=== PATIENT | male | born 1965 | race American Indian/Alaskan Native ===

== ENCOUNTER 2019-04-08 14:59 | Inpatient (IN) | payer OTHER ==
[2019-04-08] MEDS ORDERED: CARDIZEM ONE (15:18)
[2019-04-08] MEDS ORDERED: CARDIZEM IV ONE (15:18)
[2019-04-08] MEDS ORDERED: ASPIRIN PO ONE (15:36)
[2019-04-08] MEDS ORDERED: HEPARIN 10,000 UNITS/10 ML IV ONE (15:37)
[2019-04-08] MEDS: CARDIZEM/D5W 100MG/100ML 100 MG/100 ML BAG IV SCH ×2 (16:10→22:35)
--- NOTE | 2019-04-08 16:21 | XRay Report ---
CHEST 1 VIEW INDICATION: Chest Pain. COMPARISON: FINDINGS: SUPPORT DEVICES: None. HEART / MEDIASTINUM: No significant abnormality. LUNGS / PLEURA: No significant pulmonary or pleural abnormality. No pneumothorax. ADDITIONAL FINDINGS: IMPRESSION: 1. No acute findings. Signer Name: Zachary Montemayor MD Signed: 04/08/2019 4:17 PM Workstation Name: [id number]
[2019-04-08 16:23] LABS: Basophils # (Auto) 0.1 K/mm3 (0.0-0.1); Basophils % (Auto) 0.9 % (0.0-1.8); Eosinophils # (Auto) 0.2 K/mm3 (0.0-0.4); Eosinophils % (Auto) 1.5 % (0.0-4.3); Hematocrit 43.2 % (35.5-45.6); Hemoglobin 14.6 gm/dl (11.8-15.2); Lymphocytes # (Auto) 2.1 K/mm3 (1.2-5.4); Lymphocytes % (Auto) 19.8 % (13.4-35.0); Mean Corpuscular HGB Conc 34 % (32-34); Mean Corpuscular Volume 87 fl (84-94); Monocytes # (Auto) 0.7 K/mm3 (0.0-0.8); Monocytes % (Auto) 6.8 % (0.0-7.3); Platelet Count 254 K/mm3 (140-440); Red Blood Count 4.96 M/mm3 (3.65-5.03); Red Cell Distribution Width 13.7 % (13.2-15.2)
[2019-04-08] MEDS: HEPARIN/ 0.45% NACL-25,000 UNIT/500 ML 25,000 UNIT/500 ML BAG IV SCH (16:31)
[2019-04-08 16:34] LABS: INR 1.02 (0.87-1.13)
[2019-04-08 16:35] LABS: Partial Thromboplastin Time 32.6 Sec. (24.2-36.6)
--- NOTE | 2019-04-08 16:42 | Emergency Department Report ---
ED Chest Pain HPI - General Chief Complaint: Chest Pain Stated Complaint: CHEST PAIN Time Seen by Provider: 04/08/19 15:00 Source: patient Mode of arrival: Wheelchair Limitations: No Limitations - History of Present Illness Initial Comments: 54-year-old male with a past medical history of obesity, sleep apnea, and recently diagnosed hypertension presents to the hospital complaints of chest pain and diaphoresis. 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 Some fatigue also noted. Today prior to arrival patient had sudden onset of sharp substernal chest pain with some arm discomfort, worsening diaphoresis, and associated shortness of breath. Patient was noticed to be SVT in route with EMS. He arrives with the initial SVT rate of 239. Patient does have sensation of mild elevated heart rate without significant palpitations. He denies previous history of SVT or cardiac disease. He was recently started on a diuretic medication for his newly diagnosed hypertension but has not yet filled the medication. Patient denies calf Tenderness, leg edema, or recent travel. He reports that he had a stress test performed during a chest pain admission one year ago. PMD: Melendez - Related Data Allergies Allergy/AdvReac Type Severity Reaction Status Date / Time No Known Allergies Allergy Verified 04/08/19 15:33 Heart Score - HEART Score History: Slightly suspicious EKG: Non-specific Age: 45-65 Risk factors: 1-2 risk factors Troponin: < normal limit HEART Score: 3 ED Review of Systems ROS: Stated complaint: CHEST PAIN Other details as noted in HPI Comment: All other systems reviewed and negative ED Past Medical Hx - Past Medical History Hx Hypertension: Yes Additional medical history: sleep apnea - Social History Smoking Status: Former Smoker Substance Use Type: None ED Physical Exam - General Limitations: No Limitations - Other Other exam information: General: No limitations, patient is alert in no acute distress Head exam: Atraumatic, normocephalic Eyes exam: Normal appearance, pupils equal reactive to light, extraocular movements intact ENT: Moist mucous membrane, normal oropharynx Neck exam: Normal inspection, full range of motion, no meningismus nontender Respiratory exam: Clear to auscultation bilateral, no wheezes, rales, crackles Cardiovascular: Tachycardic regular rhythm Abdomen: Soft, nondistended, and nontender, with normal bowel sounds, no rebound, or guarding Extremity: Full range of motion normal inspection no deformity, no leg edema or calf tenderness Back: Normal Inspection, full range of motion, no tenderness Neurologic: Alert, oriented x3, cranial nerves intact, no motor or sensory deficit Psychiatric: normal affect, normal mood Skin: Diaphoresis ED Course Vital Signs 04/08/19 04/08/19 04/08/19 15:18 15:45 16:10 Temperature 98.4 F Pulse Rate 223 H 119 H 128 H Respiratory 13 Rate Blood Pressure 118/77 135/81 150/84 O2 Sat by Pulse 97 Oximetry - Reevaluation(s) Reevaluation #1: 04/08/19 15:00 at bedside at time of pt arrival. svt noted. 2 IV lines, classroom monitor, pulse ox, and defib paddles placed pt tx with adenosine 6mg, than 12 mg with with temporary slow down and rhythm which revealed flutter waves Cardizem 10 mg IV then given with heart rate reduction to 120. Pt reports improvement in chest pain and diaphoresis. Repeat EKG obtained at 15:23 after Cardizem 10 mg EKG reviewed by forklift truck mechanic Dr. Gomez (15:36) agrees his underlying rhythm is likely flutter. pt received the additional Cardizem 10 mg, heparin drip, and Cardizem drip ordered Reevaluation #2: 04/08/19 17:50 cardizem titrated up to 15 and pt still with heart rate in 120's - Consultations Consultation #1: 04/08/19 15:25 case d/w Dr Gomez card front office help, agree ekg rhythm aflutter, cardizem drip, heparin drip recommended Consultation #2: 04/08/19 17:51 case d/w Dr Rony Melendez. Pt will may be admitted here. CRYSTAL score - Crystal Score Age > 65: (0) No Aspirin use within the Past 7 Days: (0) No 3 or more CAD Risk Factors: (0) No 2 or more Angina events in past 24 hrs: (0) No Known CAD with more than 50% Stenosis: (0) No Elevated Cardiac Markers: (0) No ST Deviation Greater than 0.5mm: (0) No CRYSTAL Score: 0 ED Medical Decision Making - Lab Data Result diagrams: 04/08/19 16:09 04/08/19 16:09 Lab Results 07/04/08/19 04/08/19 Range/Units 16:09 16:09 16:09 WBC 10.7 (4.5-11.0) K/mm3 RBC 4.96 (3.65-5.03) M/mm3 Hgb 14.6 (11.8-15.2) gm/dl Hct 43.2 (35.5-45.6) % MCV 87 (84-94) fl MCH 29 (28-32) pg MCHC 34 (32-34) % RDW 13.7 (13.2-15.2) % Plt Count 254 (140-440) K/mm3 Lymph % (Auto) 19.8 (13.4-35.0) % [place] % (Auto) 6.8 (0.0-7.3) % Eos % (Auto) 1.5 (0.0-4.3) % Baso % (Auto) 0.9 (0.0-1.8) % Lymph # 2.1 (1.2-5.4) K/mm3 [place] # 0.7 (0.0-0.8) K/mm3 Eos # 0.2 (0.0-0.4) K/mm3 Baso # 0.1 (0.0-0.1) K/mm3 Seg Neutrophils % 71.0 H (40.0-70.0) % Seg Neutrophils # 7.6 (1.8-7.7) K/mm3 PT 13.1 (12.2-14.9) Sec. INR 1.02 (0.87-1.13) APTT 32.6 (24.2-36.6) Sec. Sodium 141 (137-145) mmol/L Potassium 4.0 (3.6-5.0) mmol/L Chloride 101.9 (98-107) mmol/L Carbon Dioxide 30 (22-30) mmol/L Anion Gap 16 mmol/L BUN 20 (9-20) mg/dL Creatinine 1.1 (0.8-1.5) mg/dL Estimated GFR > 60 ml/min BUN/Creatinine Ratio 18 % Glucose 133 H (75-100) mg/dL Calcium 8.8 (8.4-10.2) mg/dL Magnesium (1.7-2.3) mg/dL Total Bilirubin 0.20 (0.1-1.2) mg/dL AST 22 (5-40) units/L ALT 24 (7-56) units/L Alkaline Phosphatase 76 (35-129) units/L Troponin T < 0.010 (0.00-0.029) ng/mL Total Protein 7.6 (6.3-8.2) g/dL Albumin 3.8 L (3.9-5) g/dL Albumin/Globulin Ratio 1.0 % TSH (0.270-4.200) mlU/mL Free T4 (0.76-1.46) ng/dL Urine Opiates Screen Urine Methadone Screen Ur Barbiturates Screen Ur Phencyclidine Scrn Ur Amphetamines Screen U Benzodiazepines Scrn Urine Cocaine Screen U Marijuana (THC) Screen Drugs of Abuse Note 04/08/19 04/08/19 04/08/19 Range/Units 16:09 16:13 16:45 WBC (4.5-11.0) K/mm3 RBC (3.65-5.03) M/mm3 Hgb (11.8-15.2) gm/dl Hct (35.5-45.6) % MCV (84-94) fl MCH (28-32) pg MCHC (32-34) % RDW (13.2-15.2) % Plt Count (140-440) K/mm3 Lymph % (Auto) (13.4-35.0) % [place] % (Auto) (0.0-7.3) % Eos % (Auto) (0.0-4.3) % Baso % (Auto) (0.0-1.8) % Lymph # (1.2-5.4) K/mm3 [place] # (0.0-0.8) K/mm3 Eos # (0.0-0.4) K/mm3 Baso # (0.0-0.1) K/mm3 Seg Neutrophils % (40.0-70.0) % Seg Neutrophils # (1.8-7.7) K/mm3 PT (12.2-14.9) Sec. INR (0.87-1.13) APTT (24.2-36.6) Sec. Sodium (137-145) mmol/L Potassium (3.6-5.0) mmol/L Chloride (98-107) mmol/L Carbon Dioxide (22-30) mmol/L Anion Gap mmol/L BUN (9-20) mg/dL Creatinine (0.8-1.5) mg/dL Estimated GFR ml/min BUN/Creatinine Ratio % Glucose (75-100) mg/dL Calcium (8.4-10.2) mg/dL Magnesium 2.20 (1.7-2.3) mg/dL Total Bilirubin (0.1-1.2) mg/dL AST (5-40) units/L ALT (7-56) units/L Alkaline Phosphatase (35-129) units/L Troponin T (0.00-0.029) ng/mL Total Protein (6.3-8.2) g/dL Albumin (3.9-5) g/dL Albumin/Globulin Ratio % TSH 1.080 (0.270-4.200) mlU/mL Free T4 1.21 (0.76-1.46) ng/dL Urine Opiates Screen Presumptive negative Urine Methadone Screen Presumptive negative Ur Barbiturates Screen Presumptive negative Ur Phencyclidine Scrn Presumptive negative Ur Amphetamines Screen Presumptive negative U Benzodiazepines Scrn Presumptive negative Urine Cocaine Screen Presumptive negative U Marijuana (THC) Screen Presumptive negative Drugs of Abuse Note Disclamer - EKG Data -: EKG Interpreted by Me (svt rate 239) EKG shows normal: axis (qrs 78), QRS complexes (qrsd 94), ST-T waves (no stemi, anteroseptal infarct) Rate: tachycardia (239) - EKG Data 04/08/19 16:42 ekg after cardizem 10mg, aflutter rate 120, anteroseptal infarct, no stemi - Radiology Data Radiology results: report reviewed CHEST 1 VIEW INDICATION: Chest Pain. COMPARISON: FINDINGS: SUPPORT DEVICES: None. HEART / MEDIASTINUM: No significant abnormality. LUNGS / PLEURA: No significant pulmonary or pleural abnormality. No pneumothorax. ADDITIONAL FINDINGS: IMPRESSION: 1. No acute findings. - Medical Decision Making plan to admit pt to the hospital for tx of rapid aflutter, sx improved with cardizem but mild tachy persists case d/w with card heparin drip iv initial trop neg. - Differential Diagnosis svt, afib, aflutter, hyperthyroid, electrolyte abnl Critical Care Time: Yes Critical care time in (mins) excluding proc time.: 35 Critical care attestation.: If time is entered above; I have spent that time in minutes in the direct care of this critically ill patient, excluding procedure time. ED Disposition Clinical Impression: Atrial flutter with rapid ventricular response, Chest pain, Diaphoresis, Obesity, HTN (hypertension), Sleep apnea Disposition: OP ADMIT IP TO THIS HOSP Is pt being admited?: Yes Condition: Fair Time of Disposition: 17:56 (Dr Barnes/hosp)
[2019-04-08 16:52] LABS: Albumin 3.8 g/dL (3.9-5); BUN/Creatinine Ratio 18; Blood Urea Nitrogen 20 mg/dL (9-20); Calcium 8.8 mg/dL (8.4-10.2); Hemolysis Index 610
[2019-04-08 17:11] LABS: Alanine Aminotransferase 24 units/L (7-56)
[2019-04-08 17:19] LABS: Amphetamine Screen,Urine PRESUMPTIVE NEGATIVE; Benzodiazepines Screen,Urine PRESUMPTIVE NEGATIVE; Cannabinoid Screen,Urine PRESUMPTIVE NEGATIVE; Cocaine Screen,Urine PRESUMPTIVE NEGATIVE; Methadone Screen,Urine PRESUMPTIVE NEGATIVE; Opiate Screen,Urine PRESUMPTIVE NEGATIVE
[2019-04-08 17:46] LABS: Free T4 (Free Thyroxine) 1.21 ng/dL (0.76-1.46)
--- NOTE | 2019-04-08 18:33 | History and Physical Report ---
History of Present Illness Chief complaint: My chest was tight History of present illness: 54 YO Male with HTN, KALLI, Obesity Hypoventilation presents to ED for evaluation. Pt states that he has experienced pain in his chest over the past 2 days with acute worsening of symptoms over the past 4 hours. Pt states that his pain is 9/10, substernal, nonradiating, associated with diaphoresis, worsened with exertion, relieved somewhat with rest. Pt acknowledges decreased exercise tolerance, shortness of breath, dypsnea at rest, as well as chest palpitations. Pt reports assuming that his symptoms were due to acid reflux, and flatulence. Pt became concerned today with acute worsening of the aformentioned symptoms. Pt transported to [facility] via private vehicle. Pt seen and evaluated in ED and found to have NSTEMI, Atrial Flutter with RVR, Angina, as well as symptoms consistent with Diastolic CHF. Pt treated with initiation of Heparin drip and Cardizem drip with mild improvement in patient symptoms and heart rate. Cardiology consulted in ED. Pt admitted to ICU for titration of cardizem drip. Pt denies fever, chills, NVD, Trauma, BRBPR, Productive cough, skin rash, recent ill contacts, prolonged travel/immobility, unilateral leg swelling, calf pain, individual/family history of DVT/PE/Bleeding /Blood Clotting Disorders. No prior admission for review. No medication listed for reconciliation at time of admission. Past History Past Medical History: hypertension, other (KALLI, Obesity Hypoventilation.) Past Surgical History: No surgical history, Other (reviewed) Social history: single. denies: smoking, alcohol abuse, prescription drug abuse Family history: diabetes, hypertension Medications and Allergies Allergies Allergy/AdvReac Type Severity Reaction Status Date / Time No Known Allergies Allergy Verified 04/08/19 15:33 Active Meds: Active Medications Diltiazem HCl (Cardizem/D5w 100mg/100ml) 100 mg in 100 mls @ 5 mls/hr IV TITR MILTON; Protocol Last Admin: 04/08/19 16:10 Dose: 5 mg/hr, 5 mls/hr Documented by: Heparin Sodium/Sodium Chloride (Heparin/ 0.45% Nacl-25,000 Unit/500 Ml) 25,000 unit in 500 mls @ 30 mls/hr IV TITR MILTON; Protocol Last Admin: 04/08/19 16:31 Dose: 1,500 units/hr, 30 mls/hr Documented by: Review of Systems Constitutional: no weight loss, no weight gain, no fever, no chills Ears, nose, mouth and throat: no ear pain, no ear discharge, no tinnitis, no decreased hearing, no nose pain Cardiovascular: chest pain, palpitations, shortness of breath, dyspnea on exertion, decreased exercise tolerance, no orthopnea, no syncope, no paroxysmal nocturnal dyspnea Respiratory: no cough, no cough with sputum, no excessive sputum, no hemoptysis Gastrointestinal: no nausea, no vomiting, no diarrhea, no constipation Genitourinary Male: no hematuria, no flank pain, no discharge, no urinary frequency, no urinary hesitancy Rectal: no pain, no incontinence, no bleeding Musculoskeletal: no neck pain, no shooting arm pain, no arm numbness/tingling, no low back pain, no shooting leg pain, no leg numbness/tingling Integumentary: no rash, no pruritis, no redness, no sores, no wounds, no jaundice Neurological: no transient paralysis, no paralysis, no weakness, no parathesias, no tingling, no seizures, no syncope Psychiatric: no anxiety, no memory loss, no change in sleep habits, no sleep disturbances, no hypersomnia, no change in appetite, no suicidal ideation Endocrine: no cold intolerance, no heat intolerance, no polyphagia, no excessive thirst, no polyuria, no nocturia, no excessive sweating Hematologic/Lymphatic: no easy bruising, no easy bleeding, no lymphadenopathy, no lymphedema Allergic/Immunologic: no allergic rhinitis, no persistent infections, no anaphylaxis, no angioedema Exam - Constitutional Vitals: Temp Pulse Resp BP Pulse Ox 98.4 F 128 H 13 150/84 97 04/08/19 15:45 04/08/19 16:10 04/08/19 15:45 04/08/19 16:10 04/08/19 15:45 General appearance: Present: mild distress, obese - EENT Eyes: Present: PERRL ENT: hearing intact, clear oral mucosa - Neck Neck: Present: supple, normal ROM - Respiratory Respiratory effort: normal Respiratory: bilateral: CTA - Cardiovascular Rhythm: irregularly irregular Heart Sounds: Present: S1 & S2. Absent: rub, click - Extremities Extremities: pulses symmetrical, No edema Peripheral Pulses: within normal limits - Abdominal General gastrointestinal: Present: soft, non-tender, non-distended, normal bowel sounds Male genitourinary: Present: normal - Integumentary Integumentary: Present: clear, warm, dry - Musculoskeletal Musculoskeletal: gait normal, strength equal bilaterally - Psychiatric Psychiatric: appropriate mood/affect, intact judgment & insight - Neurologic Neurologic: CNII-XII intact, moves all extremities Results - Labs CBC & Chem 7: 04/08/19 16:09 04/08/19 16:09 Labs: Abnormal lab results 04/08/19 04/08/19 Range/Units 16:09 16:09 Seg Neutrophils % 71.0 H (40.0-70.0) % Glucose 133 H (75-100) mg/dL Albumin 3.8 L (3.9-5) g/dL Assessment and Plan - Patient Problems (1) NSTEMI (non-ST elevated myocardial infarction) Current Visit: Yes Status: Acute Plan to address problem: Admit to ICU, heparin drip, cardiology consulted in ED, Echo, supportive care. The high probability of a clinically significant, sudden or life threatening deterioration of the [endocrine, renal, cardiac] system(s) required my full and direct attention, intervention and personal management. The aggregate critical care time was [65] minutes. This time is in addition to time spent performing reported procedures but includes the following: [x] Data Review and interpretation [x] Patient assessment and monitoring of vital signs [x] Documentation [x] Medication orders and management (2) Obesity hypoventilation syndrome Current Visit: Yes Status: Acute Plan to address problem: supplemental oxygen, nebulizer therapy, NIPPV as clinically indicated, chest x ray (3) Angina at rest Current Visit: Yes Status: Acute Plan to address problem: Serial cardiac enxymes, ekg, telemetry, pain control, supportive care, treat NSTEMI. (4) Diastolic CHF Current Visit: Yes Status: Acute Qualifiers: Heart failure chronicity: acute Qualified Code(s): I50.31 - Acute diastolic (congestive) heart failure Plan to address problem: Echo, strict I/O, daily weight, monitor uop q shift, thyroid panel, magnesium level, chest x ray,BNP, echo. (5) Atrial flutter with rapid ventricular response Current Visit: Yes Status: Acute (6) HTN (hypertension) Current Visit: Yes Status: Acute (7) Sleep apnea Current Visit: Yes Status: Acute Qualifiers: Sleep apnea type: unspecified type Qualified Code(s): G47.30 - Sleep apnea, unspecified Plan to address problem: Supplemental oxygen, nebulizer therapy, NIPPV QHS, supportive care, outpatient sleep study (8) DVT prophylaxis Current Visit: Yes Status: Acute Plan to address problem: SCD to BLE while in bed, therapeutic heparin.
[2019-04-08] MEDS ORDERED: PROVENTIL IH PRN (19:03)
[2019-04-08] MEDS ORDERED: PERCOCET 5/325 PO PRN (19:03)
[2019-04-08] MEDS ORDERED: SODIUM CHLORIDE FLUSH SYRINGE 10 ML IV PRN (19:03)
[2019-04-09 03:48] LABS: Basophils # (Auto) 0.1 K/mm3 (0.0-0.1); Basophils % (Auto) 0.6 % (0.0-1.8); Eosinophils # (Auto) 0.1 K/mm3 (0.0-0.4); Eosinophils % (Auto) 1.4 % (0.0-4.3); Hematocrit 43.3 % (35.5-45.6); Hemoglobin 14.6 gm/dl (11.8-15.2); Lymphocytes # (Auto) 2.6 K/mm3 (1.2-5.4); Lymphocytes % (Auto) 24.6 % (13.4-35.0); Mean Corpuscular HGB Conc 34 % (32-34); Mean Corpuscular Volume 87 fl (84-94); Monocytes # (Auto) 0.7 K/mm3 (0.0-0.8); Monocytes % (Auto) 6.8 % (0.0-7.3); Platelet Count 247 K/mm3 (140-440); Red Blood Count 4.98 M/mm3 (3.65-5.03); Red Cell Distribution Width 14.3 % (13.2-15.2)
[2019-04-09 04:11] LABS: Alanine Aminotransferase 21 units/L (7-56); Albumin 3.7 g/dL (3.9-5); BUN/Creatinine Ratio 21; Blood Urea Nitrogen 15 mg/dL (9-20); Calcium 8.8 mg/dL (8.4-10.2); Hemolysis Index 10
[2019-04-09] MEDS: HEPARIN/ 0.45% NACL-25,000 UNIT/500 ML 25,000 UNIT/500 ML BAG IV SCH (09:23)
[2019-04-09] MEDS: CARDIZEM/D5W 100MG/100ML 100 MG/100 ML BAG IV SCH (09:30)
[2019-04-09] MEDS ORDERED: CORDARONE 150 MG in D5W 97 ML IV ONE (10:07)
--- NOTE | 2019-04-09 10:12 | Consultation ---
History of Present Illness Consult date: 04/09/19 Consult reason: chest pain, other (atrial flutter) History of present illness: 54 year old male with past medical history of hypertension and sleep apnea presenting with chest pain and atypical atrial flutter with RVR. HR ~130 on IV diltiazem this morning. No previous cardiac disease. Troponin 0.099. Past History Past Medical History: hypertension, other (KALLI, Obesity Hypoventilation.) Past Surgical History: No surgical history, Other (reviewed) Social history: single. denies: smoking, alcohol abuse, prescription drug abuse Family history: diabetes, hypertension Medications and Allergies Allergies Allergy/AdvReac Type Severity Reaction Status Date / Time No Known Allergies Allergy Verified 04/08/19 15:33 Active Meds: Active Medications Albuterol (Proventil) 2.5 mg IH Q3H PRN PRN Reason: Shortness Of Breath Heparin Sodium/Sodium Chloride (Heparin/ 0.45% Nacl-25,000 Unit/500 Ml) 25,000 unit in 500 mls @ 30 mls/hr IV TITR MILTON; Protocol Last Admin: 04/09/19 09:23 Dose: 1,500 units/hr, 30 mls/hr Documented by: Oxycodone/Acetaminophen (Percocet 5/325) 1 tab PO Q6H PRN PRN Reason: Pain, Moderate (4-6) Sodium Chloride (Sodium Chloride Flush Syringe 10 Ml) 10 ml IV BID MILTON Sodium Chloride (Sodium Chloride Flush Syringe 10 Ml) 10 ml IV PRN PRN PRN Reason: LINE FLUSH Review of Systems All systems: negative Physical Examination Vital Signs Pulse BP 223 H 118/77 04/08/19 15:18 04/08/19 15:18 General appearance: no acute distress Neck: Positive: neck supple Cardiac: Positive: Tachycardia Lungs: Positive: Decreased Breath Sounds Abdomen: Positive: Soft Results 04/09/19 03:23 04/09/19 03:23 Cardiac Enzymes 04/08/19 04/09/19 Range/Units 16:09 03:23 AST 22 19 (5-40) units/L Coagulation 04/08/19 Range/Units 16:09 PT 13.1 (12.2-14.9) Sec. INR 1.02 (0.87-1.13) APTT 32.6 (24.2-36.6) Sec. CBC 04/08/19 04/09/19 Range/Units 16:09 03:23 WBC 10.7 10.5 (4.5-11.0) K/mm3 RBC 4.96 4.98 (3.65-5.03) M/mm3 Hgb 14.6 14.6 (11.8-15.2) gm/dl Hct 43.2 43.3 (35.5-45.6) % Plt Count 254 247 (140-440) K/mm3 Lymph # 2.1 2.6 (1.2-5.4) K/mm3 [place] # 0.7 0.7 (0.0-0.8) K/mm3 Eos # 0.2 0.1 (0.0-0.4) K/mm3 Baso # 0.1 0.1 (0.0-0.1) K/mm3 Comprehensive Metabolic Panel 04/08/19 04/09/19 Range/Units 16:09 03:23 Sodium 141 138 (137-145) mmol/L Potassium 4.0 4.3 (3.6-5.0) mmol/L Chloride 101.9 99.4 (98-107) mmol/L Carbon Dioxide 30 28 (22-30) mmol/L BUN 20 15 (9-20) mg/dL Creatinine 1.1 0.7 L (0.8-1.5) mg/dL Glucose 133 H 114 H (75-100) mg/dL Calcium 8.8 8.8 (8.4-10.2) mg/dL AST 22 19 (5-40) units/L ALT 24 21 (7-56) units/L Alkaline Phosphatase 76 66 (35-129) units/L Total Protein 7.6 7.2 (6.3-8.2) g/dL Albumin 3.8 L 3.7 L (3.9-5) g/dL EKG interpretations - Telemetry EKG Rhythm: Atrial Flutter Assessment and Plan Atypical atrial flutter Normal TSH Negative UDS Chest pain Non-specific troponin Rule out type II DC secondary to demand ischemia Sleep apnea Obesity Systemic Hypertension Recommendations: Discontinue IV diltiazem Start IV amiodarone with bolus Start po metoprolol and aspirin Continue IV heparin JESSICA guided CV in am if HR remains uncontrolled
--- NOTE | 2019-04-09 10:26 | Progress Note ---
Assessment and Plan Assessment and plan: Atrial flutter. TSH normal. Urine drug screen negative. Cardizem discontinued and IV amiodarone started per cardiology. Continue metoprolol and IV heparin. JESSICA guided cardioversion in a.m. per cardiology. Chest pain. Continue aspirin and heparin. Elevated troponin. Ischemic evaluation per cardiology. OHS/KALLI. Continue O2. Patient will likely need sleep study as outpatient. Hypertension. Continue antihypertensive medications. History Interval history: No new issues overnight. Hospitalist Physical - Constitutional Vitals: Temp Pulse Resp BP Pulse Ox 97.7 F 115 H 16 141/102 98 04/09/19 07:56 04/09/19 09:00 04/09/19 09:00 04/09/19 09:00 04/09/19 09:07 General appearance: Present: no acute distress - EENT Eyes: Present: PERRL, EOM intact ENT: hearing intact, clear oral mucosa, dentition normal - Neck Neck: Present: supple, normal ROM - Respiratory Respiratory effort: normal Respiratory: bilateral: CTA - Cardiovascular Rhythm: regular Heart Sounds: Present: S1 & S2. Absent: gallop, rub - Extremities Extremities: no ischemia, No edema, Full ROM - Abdominal General gastrointestinal: soft, non-tender, non-distended, normal bowel sounds - Integumentary Integumentary: Present: clear, warm, dry - Neurologic Neurologic: CNII-XII intact, moves all extremities Results - Labs CBC & Chem 7: 04/09/19 03:23 04/09/19 03:23 Labs: Laboratory Last Values WBC 10.5 K/mm3 (4.5-11.0) 04/09/19 03:23 RBC 4.98 M/mm3 (3.65-5.03) 04/09/19 03:23 Hgb 14.6 gm/dl (11.8-15.2) 04/09/19 03:23 Hct 43.3 % (35.5-45.6) 04/09/19 03:23 MCV 87 fl (84-94) 04/09/19 03:23 MCH 29 pg (28-32) 04/09/19 03:23 MCHC 34 % (32-34) 04/09/19 03:23 RDW 14.3 % (13.2-15.2) 04/09/19 03:23 Plt Count 247 K/mm3 (140-440) 04/09/19 03:23 Lymph % (Auto) 24.6 % (13.4-35.0) 04/09/19 03:23 [place] % (Auto) 6.8 % (0.0-7.3) 04/09/19 03:23 Eos % (Auto) 1.4 % (0.0-4.3) 04/09/19 03:23 Baso % (Auto) 0.6 % (0.0-1.8) 04/09/19 03:23 Lymph # 2.6 K/mm3 (1.2-5.4) 04/09/19 03:23 [place] # 0.7 K/mm3 (0.0-0.8) 04/09/19 03:23 Eos # 0.1 K/mm3 (0.0-0.4) 04/09/19 03:23 Baso # 0.1 K/mm3 (0.0-0.1) 04/09/19 03:23 Seg Neutrophils % 66.6 % (40.0-70.0) 04/09/19 03:23 Seg Neutrophils # 7.0 K/mm3 (1.8-7.7) 04/09/19 03:23 PT 13.1 Sec. (12.2-14.9) 04/08/19 16:09 INR 1.02 (0.87-1.13) 04/08/19 16:09 APTT 32.6 Sec. (24.2-36.6) 04/08/19 16:09 Heparin Anti-Xa Level 0.30 U.I./ml (0.3-0.7) 04/09/19 03:23 Sodium 138 mmol/L (137-145) 04/09/19 03:23 Potassium 4.3 mmol/L (3.6-5.0) 04/09/19 03:23 Chloride 99.4 mmol/L (98-107) 04/09/19 03:23 Carbon Dioxide 28 mmol/L (22-30) 04/09/19 03:23 15 mmol/L 04/09/19 03:23 BUN 15 mg/dL (9-20) 04/09/19 03:23 0.7 mg/dL (0.8-1.5) L 04/09/19 03:23 Estimated GFR > 60 ml/min 04/09/19 03:23 21 % 04/09/19 03:23 Glucose 114 mg/dL (75-100) H 04/09/19 03:23 Calcium 8.8 mg/dL (8.4-10.2) 04/09/19 03:23 Magnesium 2.20 mg/dL (1.7-2.3) 04/08/19 16:13 0.30 mg/dL (0.1-1.2) 04/09/19 03:23 AST 19 units/L (5-40) 04/09/19 03:23 ALT 21 units/L (7-56) 04/09/19 03:23 66 units/L (35-129) 04/09/19 03:23 0.094 ng/mL (0.00-0.029) H 04/08/19 20:42 NT-Pro-B Natriuret Pep 92.38 pg/mL (0-900) 04/08/19 20:42 7.2 g/dL (6.3-8.2) 04/09/19 03:23 3.7 g/dL (3.9-5) L 04/09/19 03:23 1.1 % 04/09/19 03:23 TSH 1.080 mlU/mL (0.270-4.200) 04/08/19 16:09 Free T4 1.21 ng/dL (0.76-1.46) 04/08/19 16:09 Presumptive negative 04/08/19 16:45 Presumptive negative 04/08/19 16:45 Ur Barbiturates Screen Presumptive negative 04/08/19 16:45 Ur Phencyclidine Scrn Presumptive negative 04/08/19 16:45 Ur Amphetamines Screen Presumptive negative 04/08/19 16:45 U Benzodiazepines Scrn Presumptive negative 04/08/19 16:45 Presumptive negative 04/08/19 16:45 U Marijuana (THC) Screen Presumptive negative 04/08/19 16:45 Disclamer 04/08/19 16:45 Active Medications - Current Medications Current Medications: Generic Name Dose Route Start Last Admin Trade Name Freq PRN Reason Stop Dose Admin Albuterol 2.5 mg 04/08/19 19:03 Proventil IH Q3H PRN Shortness Of Breath Aspirin 81 mg 04/09/19 11:00 Halfprin Ec PO QDAY MILTON Heparin Sodium/Sodium Chloride 25,000 unit in 500 mls @ 30 mls/hr 04/08/19 16:00 04/09/19 09:23 Heparin/ 0.45% Nacl-25,000 Unit/500 Ml IV 1,500 units/hr TITR MILTON 30 mls/hr Administration Protocol 1,500 UNITS/HR Amiodarone HCl 900 mg/ 500 mls @ 33.333 mls/hr 04/09/19 11:00 Dextrose IV DIRECT MILTON Protocol 1 MG/MIN Metoprolol Tartrate 50 mg 04/09/19 22:00 Lopressor PO BID MILTON Oxycodone/Acetaminophen 1 tab 04/08/19 19:03 Percocet 5/325 PO Q6H PRN Pain, Moderate (4-6) Sodium Chloride 10 ml 04/08/19 22:00 Sodium Chloride Flush Syringe 10 Ml IV BID MILTON Sodium Chloride 10 ml 04/08/19 19:03 Sodium Chloride Flush Syringe 10 Ml IV PRN PRN LINE FLUSH Nutrition/Malnutrition Assess - Dietary Evaluation Nutrition/Malnutrition Findings: Nutrition Notes Start: 04/09/19 08:37 Freq: Status: Active Protocol: Document 04/09/19 08:37 LP (Rec: 04/09/19 08:38 LP [id number]) Nutrition Notes Need for Assessment generated from: MD Order Initial or Follow up Brief Note Current Diagnosis Hypertension Other Pertinent Diagnosis NSTEMI, Aflutter Current Diet Cardiac Subjective/Other Information Consult for diet education. Pt states eating well and denies needs for diet education. Left handout on HTN diet. Nutrition Intervention Revisit per MD consult or patient Sign Off request:
[2019-04-09] MEDS: SODIUM CHLORIDE FLUSH SYRINGE 10 ML IV SCH ×3 (10:58→21:20)
[2019-04-09] MEDS: HALFPRIN EC PO SCH (11:14)
[2019-04-09] MEDS: CORDARONE 900 MG in D5W 482 ML IV SCH (11:26)
--- NOTE | 2019-04-09 15:25 | Consultation ---
History of Present Illness Consult date: 04/09/19 Requesting physician: DAVINA PATEL Reason for consult: other (Atrial Fibrillation with RVR) History of present illness: PULMONARY/CCM CONSULT NOTE (Full dictation # [id number]) Please see dictated notes for full details Past History Past Medical History: hypertension, other (KALLI, Obesity Hypoventilation.) Past Surgical History: No surgical history, Other (reviewed) Social history: single. denies: smoking, alcohol abuse, prescription drug abuse Family history: diabetes, hypertension Medications and Allergies Allergies Allergy/AdvReac Type Severity Reaction Status Date / Time No Known Allergies Allergy Verified 04/08/19 15:33 Home Medications Medication Instructions Recorded Confirmed Last Taken Type Acetaminophen/Codeine [Tylenol 1 tab PO Q4H 04/09/19 04/09/19 Unknown History /Codeine # 3 tab] Amoxicillin [Trimox CAP] 500 cap PO TID 04/09/19 04/09/19 Unknown History Terazosin [Hytrin] 1 cap PO DAILY 04/09/19 04/09/19 Unknown History Active Meds: Active Medications Albuterol (Proventil) 2.5 mg IH Q3H PRN PRN Reason: Shortness Of Breath Aspirin (Halfprin Ec) 81 mg PO QDAY MILTON Last Admin: 04/09/19 11:14 Dose: 81 mg Documented by: Heparin Sodium/Sodium Chloride (Heparin/ 0.45% Nacl-25,000 Unit/500 Ml) 25,000 unit in 500 mls @ 30 mls/hr IV TITR MILTON; Protocol Last Titration: 04/09/19 11:24 Dose: 1,650 units/hr, 33 mls/hr Documented by: Amiodarone HCl 900 mg/ (Dextrose) 500 mls @ 33.333 mls/hr IV DIRECT MILTON; Protocol Last Admin: 04/09/19 11:26 Dose: 1 mg/min, 33.333 mls/hr Documented by: Metoprolol Tartrate (Lopressor) 50 mg PO BID MILTON Oxycodone/Acetaminophen (Percocet 5/325) 1 tab PO Q6H PRN PRN Reason: Pain, Moderate (4-6) Sodium Chloride (Sodium Chloride Flush Syringe 10 Ml) 10 ml IV BID MILTON Last Admin: 04/09/19 11:22 Dose: Not Given Documented by: Sodium Chloride (Sodium Chloride Flush Syringe 10 Ml) 10 ml IV PRN PRN PRN Reason: LINE FLUSH Physical Examination Vital signs: Vital Signs Pulse BP 223 H 118/77 04/08/19 15:18 04/08/19 15:18 Results - Laboratory Findings CBC and BMP: 04/10/19 04:25 04/10/19 04:25 PT/INR, D-dimer PT 13.1 Sec. (12.2-14.9) 04/08/19 16:09 INR 1.02 (0.87-1.13) 04/08/19 16:09 Abnormal lab findings: Abnormal Labs 04/08/19 04/08/19 04/08/19 16:09 16:09 18:01 Seg Neutrophils % 71.0 H Heparin Anti-Xa Level Creatinine Glucose 133 H Troponin T 0.099 H Albumin 3.8 L 04/08/19 04/09/19 04/09/19 20:42 03:23 10:26 Seg Neutrophils % Heparin Anti-Xa Level 0.21 L Creatinine 0.7 L Glucose 114 H Troponin T 0.094 H Albumin 3.7 L
[2019-04-09] MEDS: LOPRESSOR PO SCH (21:19)
[2019-04-10] MEDS: HEPARIN/ 0.45% NACL-25,000 UNIT/500 ML 25,000 UNIT/500 ML BAG IV SCH ×2 (02:52→18:33)
[2019-04-10 05:03] LABS: Basophils # (Auto) 0.1 K/mm3 (0.0-0.1); Basophils % (Auto) 0.6 % (0.0-1.8); Eosinophils # (Auto) 0.2 K/mm3 (0.0-0.4); Eosinophils % (Auto) 1.6 % (0.0-4.3); Hematocrit 44.6 % (35.5-45.6); Hemoglobin 15.1 gm/dl (11.8-15.2); Lymphocytes # (Auto) 2.7 K/mm3 (1.2-5.4); Mean Corpuscular HGB Conc 34 % (32-34); Mean Corpuscular Volume 86 fl (84-94); Monocytes # (Auto) 0.7 K/mm3 (0.0-0.8); Platelet Count 253 K/mm3 (140-440); Red Blood Count 5.16 M/mm3 (3.65-5.03); Red Cell Distribution Width 13.9 % (13.2-15.2)
[2019-04-10 05:23] LABS: BUN/Creatinine Ratio 16; Blood Urea Nitrogen 14 mg/dL (9-20); Calcium 8.8 mg/dL (8.4-10.2); Hemolysis Index 9
[2019-04-10] MEDS: TRIMOX PO SCH ×3 (08:09→20:09)
[2019-04-10] MEDS: CORDARONE 900 MG in D5W 482 ML IV SCH (09:49)
[2019-04-10] MEDS ORDERED: TERAZOSIN PO SCH (10:00)
--- NOTE | 2019-04-10 10:32 | Progress Note ---
Assessment and Plan Atypical atrial flutter Normal TSH Negative UDS Chest pain Non-specific troponin Sleep apnea Obesity Systemic Hypertension Recommendations: Continue IV heparin, amiodarone and beta blockers for atrial fibrillation. Patient was given medications by the nurse this morning. We will therefore defer JESSICA guided CV until tomorrow Subjective Date of service: 04/10/19 Interval history: Patient has no complaints. Atrial flutter, rate ranging 110-115 on ekg monitor tech. Objective Vital Signs Temp Pulse Pulse Resp BP Pulse Ox 04/10/19 09:51 105 H 15 126/92 99 04/10/19 09:41 109 H 16 126/92 96 04/10/19 09:31 107 H 15 126/92 96 04/10/19 09:21 123 H 24 118/95 96 04/10/19 09:11 106 H 14 118/95 96 04/10/19 09:01 109 H 11 L 118/95 94 04/10/19 08:51 105 H 15 144/107 96 04/10/19 08:45 96 04/10/19 08:41 105 H 11 L 144/107 94 04/10/19 08:31 108 H 27 H 144/107 96 04/10/19 08:21 113 H 17 144/107 99 04/10/19 08:11 105 H 16 128/87 98 04/10/19 08:01 101 H 21 128/87 97 04/10/19 08:00 97.9 F 107 H 18 98 04/10/19 07:51 103 H 18 144/107 96 04/10/19 07:41 101 H 17 144/107 97 04/10/19 07:31 103 H 12 144/107 96 04/10/19 07:21 100 H 18 146/96 97 04/10/19 07:11 103 H 11 L 135/102 97 04/10/19 07:01 105 H 12 135/102 93 04/10/19 06:51 108 H 14 146/96 97 04/10/19 06:41 119 H 23 146/96 97 04/10/19 06:30 104 H 19 146/96 93 04/10/19 06:21 103 H 14 122/91 97 04/10/19 06:11 104 H 12 144/101 94 04/10/19 06:01 107 H 20 144/101 92 04/10/19 05:51 104 H 15 122/91 90 04/10/19 05:45 17 98 04/10/19 05:41 107 H 18 122/91 92 04/10/19 05:31 104 H 20 119/81 86 04/10/19 05:21 99 H 15 119/81 91 04/10/19 05:16 105 H 16 120/73 95 04/10/19 05:11 104 H 15 119/81 96 04/10/19 05:01 101 H 15 120/73 93 04/10/19 04:51 100 H 14 119/81 96 04/10/19 04:41 104 H 13 119/81 97 04/10/19 04:31 106 H 14 129/80 94 04/10/19 04:21 105 H 18 129/80 97 04/10/19 04:11 102 H 12 129/80 98 04/10/19 04:05 105 H 17 98 04/10/19 04:01 123 H 16 129/80 96 04/10/19 04:00 98.8 F 04/10/19 03:51 97 H 18 129/80 99 04/10/19 03:41 84 13 129/80 97 04/10/19 03:31 98 H 13 127/87 96 04/10/19 03:21 94 H 13 136/79 97 04/10/19 03:11 92 H 14 136/79 96 04/10/19 03:09 105 H 17 98 04/10/19 03:01 92 H 12 129/80 95 04/10/19 02:51 95 H 19 136/79 98 04/10/19 02:41 91 H 13 136/79 96 04/10/19 02:31 89 13 136/79 97 04/10/19 02:21 91 H 17 144/72 94 04/10/19 02:11 94 H 13 144/72 96 04/10/19 02:01 94 H 16 143/86 95 04/10/19 01:51 96 H 18 144/72 98 04/10/19 01:45 94 H 105 H 17 98 04/10/19 01:41 94 H 14 144/72 98 04/10/19 01:31 93 H 15 144/72 97 04/10/19 01:21 93 H 20 137/91 99 04/10/19 01:11 90 14 137/91 98 04/10/19 01:00 89 14 138/82 95 04/10/19 00:51 95 H 12 137/91 97 04/10/19 00:41 94 H 15 137/91 99 04/10/19 00:31 95 H 17 128/81 98 04/10/19 00:21 90 25 H 128/81 98 04/10/19 00:11 88 29 H 128/81 98 04/10/19 00:05 93 H 14 131/74 98 04/10/19 00:01 92 H 29 H 131/74 96 04/10/19 00:00 99.0 F 04/09/19 23:51 95 H 24 128/81 98 04/09/19 23:41 97 H 32 H 128/81 97 04/09/19 23:31 92 H 38 H 128/81 94 04/09/19 23:21 95 H 18 144/97 97 04/09/19 23:11 93 H 30 H 144/97 98 04/09/19 23:01 98 H 14 144/97 97 04/09/19 22:51 95 H 12 142/97 97 04/09/19 22:41 98 H 12 142/97 98 04/09/19 22:30 103 H 13 142/97 96 04/09/19 22:21 92 H 17 131/110 99 04/09/19 22:11 103 H 15 131/110 98 04/09/19 22:09 113 H 04/09/19 22:03 104 H 18 131/110 98 04/09/19 22:00 113 H 113 H 20 131/110 96 04/09/19 21:51 120 H 13 154/112 98 04/09/19 21:45 120 H 14 154/112 97 04/09/19 21:41 121 H 22 154/112 95 04/09/19 21:31 122 H 18 154/112 92 04/09/19 21:21 122 H 18 136/105 97 04/09/19 21:19 112 H 136/105 04/09/19 21:11 113 H 17 136/105 99 04/09/19 21:00 115 H 19 136/105 90 04/09/19 20:51 121 H 17 139/95 94 04/09/19 20:41 121 H 16 139/95 96 04/09/19 20:31 117 H 17 139/95 91 04/09/19 20:21 112 H 14 118/94 88 04/09/19 20:11 107 H 16 118/94 93 04/09/19 20:01 107 H 19 140/100 90 04/09/19 20:00 98.8 F 04/09/19 19:51 109 H 17 140/100 94 04/09/19 19:41 112 H 16 140/100 94 04/09/19 19:31 114 H 19 140/100 93 04/09/19 19:21 111 H 18 144/81 95 04/09/19 19:11 112 H 15 144/81 95 04/09/19 19:01 108 H 14 144/81 92 04/09/19 19:00 112 H 105 H 14 93 04/09/19 18:51 112 H 22 136/89 92 04/09/19 18:41 110 H 21 127/98 98 04/09/19 18:30 113 H 17 127/98 93 04/09/19 18:21 114 H 15 126/104 96 04/09/19 18:11 109 H 13 150/93 96 04/09/19 18:01 113 H 13 150/93 94 04/09/19 17:51 109 H 14 139/91 96 04/09/19 17:41 118 H 22 126/92 92 04/09/19 17:31 116 H 18 126/92 92 04/09/19 17:21 108 H 19 132/88 92 04/09/19 17:11 107 H 18 128/95 91 04/09/19 17:00 113 H 15 128/95 92 04/09/19 16:51 123 H 28 H 136/119 96 04/09/19 16:40 108 H 20 125/77 95 04/09/19 16:31 108 H 17 135/81 93 04/09/19 16:21 107 H 16 127/85 94 04/09/19 16:11 112 H 18 135/90 95 04/09/19 16:01 105 H 14 135/90 93 04/09/19 16:00 97.8 F 105 H 14 93 04/09/19 15:51 110 H 15 125/77 96 04/09/19 15:41 115 H 16 125/77 97 04/09/19 15:31 126 H 23 125/77 96 04/09/19 15:21 121 H 15 125/77 92 04/09/19 15:11 125 H 28 H 142/104 95 04/09/19 15:01 101 H 18 142/104 91 04/09/19 14:50 104 H 20 137/85 95 04/09/19 14:41 109 H 16 137/85 94 04/09/19 14:31 109 H 28 H 133/101 93 04/09/19 14:21 109 H 38 H 133/101 93 04/09/19 14:11 106 H 33 H 93 04/09/19 14:00 104 H 28 H 152/118 93 04/09/19 13:50 109 H 20 152/118 95 04/09/19 13:40 109 H 12 128/80 95 04/09/19 13:30 105 H 18 137/83 98 04/09/19 13:20 110 H 18 137/83 97 04/09/19 13:10 119 H 21 140/77 96 04/09/19 13:00 106 H 18 136/83 97 04/09/19 12:50 113 H 14 136/83 94 04/09/19 12:40 109 H 17 140/77 95 04/09/19 12:30 111 H 17 129/92 98 04/09/19 12:20 126 H 22 129/92 94 04/09/19 12:10 124 H 20 143/95 96 04/09/19 12:00 97.8 F 113 H 113 H 26 H 138/96 91 04/09/19 11:50 106 H 18 138/96 95 04/09/19 11:40 108 H 18 131/76 97 04/09/19 11:30 102 H 16 130/83 96 04/09/19 11:20 103 H 18 130/83 97 04/09/19 11:10 112 H 15 139/90 95 04/09/19 11:00 103 H 15 131/97 94 04/09/19 10:50 118 H 22 131/97 93 04/09/19 10:40 112 H 14 139/90 94 - Physical Examination General: No Apparent Distress HEENT: Positive: PERRL Neck: Positive: neck supple Cardiac: Positive: irregularly irregular Lungs: Positive: Decreased Breath Sounds Neuro: Positive: Grossly Intact Abdomen: Positive: Soft - Labs and Meds CBC 04/10/19 Range/Units 04:25 WBC 10.1 (4.5-11.0) K/mm3 RBC 5.16 H (3.65-5.03) M/mm3 Hgb 15.1 (11.8-15.2) gm/dl Hct 44.6 (35.5-45.6) % Plt Count 253 (140-440) K/mm3 Lymph # 2.7 (1.2-5.4) K/mm3 [place] # 0.7 (0.0-0.8) K/mm3 Eos # 0.2 (0.0-0.4) K/mm3 Baso # 0.1 (0.0-0.1) K/mm3 Comprehensive Metabolic Panel 04/10/19 Range/Units 04:25 Sodium 138 (137-145) mmol/L Potassium 4.1 (3.6-5.0) mmol/L Chloride 100.5 (98-107) mmol/L Carbon Dioxide 28 (22-30) mmol/L BUN 14 (9-20) mg/dL Creatinine 0.9 (0.8-1.5) mg/dL Glucose 112 H (75-100) mg/dL Calcium 8.8 (8.4-10.2) mg/dL
[2019-04-10] MEDS: MINIPRESS PO SCH (10:43)
[2019-04-10] MEDS: LOPRESSOR PO SCH ×2 (10:43→22:06)
[2019-04-10] MEDS: HALFPRIN EC PO SCH (10:43)
[2019-04-10] MEDS: SODIUM CHLORIDE FLUSH SYRINGE 10 ML IV SCH ×2 (10:44→22:07)
--- NOTE | 2019-04-10 11:47 | Progress Note ---
Assessment and Plan Atrial fibrillation with a rapid ventricular response. Shortness of breath. Obstructive sleep apnea. Hypertension. Morbid obesity. Elevated serum troponin - continue Amiodarone drip and transition to oral dosing per cardiology - for JESSICA - continue full anticoagulation - continue NIV qhs re: KALLI - supplemental oxygen as needed to keep O2 sat's > 90% - weight loss couseled - NSTEMI per cardiology (likely demand ischemia) - continue other care per attending / other consultants ... re-evaluate in am & prn I have spent ( >35 ) minutes with the patient w/ >50% of the time spent counseling and/or coordinating care for this patient. Counseling topics and/or how time was spent coordinating patient's care is outlined in the impression and plan above. Subjective Date of service: 04/10/19 Principal diagnosis: A-fib with RVR; SOB; KALLI; HTN; Morbid obesity; NSTEMI Interval history: Patient is seen today for: Atrial fibrillation with a rapid ventricular response; Shortness of breath; Obstructive sleep apnea; Hypertension; Morbid obesity; Elevated serum troponin Seen and examined at bedside; 24hour events reviewed; nursing and respiratory care staff consulted; no adverse overnight events reported to me; resting peacefully in bed; denies acute chest pains or palpitations; overall feels better; No N/V/F/C; he remains on IV amiodarone and heparin; tolerated qhs BIPAP well Objective Vital Signs - 12hr 04/09/19 04/10/19 04/10/19 23:51 00:00 00:01 Temperature 99.0 F Pulse Rate 95 H 92 H Pulse Rate [ From Monitor] Respiratory 24 29 H Rate Blood Pressure 128/81 131/74 O2 Sat by Pulse 98 96 Oximetry 04/10/19 04/10/19 04/10/19 00:05 00:11 00:21 Temperature Pulse Rate 93 H 88 90 Pulse Rate [ From Monitor] Respiratory 14 29 H 25 H Rate Blood Pressure 131/74 128/81 128/81 O2 Sat by Pulse 98 98 98 Oximetry 04/10/19 04/10/19 04/10/19 00:31 00:41 00:51 Temperature Pulse Rate 95 H 94 H 95 H Pulse Rate [ From Monitor] Respiratory 17 15 12 Rate Blood Pressure 128/81 137/91 137/91 O2 Sat by Pulse 98 99 97 Oximetry 0704/10/19 04/10/19 01:00 01:11 01:21 Temperature Pulse Rate 89 90 93 H Pulse Rate [ From Monitor] Respiratory 14 14 20 Rate Blood Pressure 138/82 137/91 137/91 O2 Sat by Pulse 95 98 99 Oximetry 04/10/19 04/10/19 04/10/19 01:31 01:41 01:45 Temperature Pulse Rate 93 H 94 H 94 H Pulse Rate [ 105 H From Monitor] Respiratory 15 14 17 Rate Blood Pressure 144/72 144/72 O2 Sat by Pulse 97 98 98 Oximetry 04/10/19 04/10/19 04/10/19 01:51 02:01 02:11 Temperature Pulse Rate 96 H 94 H 94 H Pulse Rate [ From Monitor] Respiratory 18 16 13 Rate Blood Pressure 144/72 143/86 144/72 O2 Sat by Pulse 98 95 96 Oximetry 04/10/19 04/10/19 04/10/19 02:21 02:31 02:41 Temperature Pulse Rate 91 H 89 91 H Pulse Rate [ From Monitor] Respiratory 17 13 13 Rate Blood Pressure 144/72 136/79 136/79 O2 Sat by Pulse 94 97 96 Oximetry 04/10/19 04/10/19 04/10/19 02:51 03:01 03:09 Temperature Pulse Rate 95 H 92 H Pulse Rate [ 105 H From Monitor] Respiratory 19 12 17 Rate Blood Pressure 136/79 129/80 O2 Sat by Pulse 98 95 98 Oximetry 04/10/19 04/10/19 04/10/19 03:11 03:21 03:31 Temperature Pulse Rate 92 H 94 H 98 H Pulse Rate [ From Monitor] Respiratory 14 13 13 Rate Blood Pressure 136/79 136/79 127/87 O2 Sat by Pulse 96 97 96 Oximetry 04/10/19 04/10/19 04/10/19 03:41 03:51 04:00 Temperature 98.8 F Pulse Rate 84 97 H Pulse Rate [ From Monitor] Respiratory 13 18 Rate Blood Pressure 129/80 129/80 O2 Sat by Pulse 97 99 Oximetry 04/10/19 04/10/19 04/10/19 04:01 04:05 04:11 Temperature Pulse Rate 123 H 102 H Pulse Rate [ 105 H From Monitor] Respiratory 16 17 12 Rate Blood Pressure 129/80 129/80 O2 Sat by Pulse 96 98 98 Oximetry 04/10/19 04/10/1904/10/19 04:21 04:31 04:41 Temperature Pulse Rate 105 H 106 H 104 H Pulse Rate [ From Monitor] Respiratory 18 14 13 Rate Blood Pressure 129/80 129/80 119/81 O2 Sat by Pulse 97 94 97 Oximetry 04/10/19 04/10/19 04/10/19 04:51 05:01 05:11 Temperature Pulse Rate 100 H 101 H 104 H Pulse Rate [ From Monitor] Respiratory 14 15 15 Rate Blood Pressure 119/81 120/73 119/81 O2 Sat by Pulse 96 93 96 Oximetry 04/10/19 04/10/19 04/10/19 05:16 05:21 05:31 Temperature Pulse Rate 105 H 99 H 104 H Pulse Rate [ From Monitor] Respiratory 16 15 20 Rate Blood Pressure 120/73 119/81 119/81 O2 Sat by Pulse 95 91 86 Oximetry 04/10/19 04/10/19 04/10/19 05:41 05:45 05:51 Temperature Pulse Rate 107 H 104 H Pulse Rate [ From Monitor] Respiratory 18 17 15 Rate Blood Pressure 122/91 122/91 O2 Sat by Pulse 92 98 90 Oximetry 04/10/19 04/10/19 04/10/19 06:01 06:11 06:21 Temperature Pulse Rate 107 H 104 H 103 H Pulse Rate [ From Monitor] Respiratory 20 12 14 Rate Blood Pressure 144/101 144/101 122/91 O2 Sat by Pulse 92 94 97 Oximetry 04/10/19 04/10/19 04/10/19 06:30 06:41 06:51 Temperature Pulse Rate 104 H 119 H 108 H Pulse Rate [ From Monitor] Respiratory 19 23 14 Rate Blood Pressure 146/96 146/96 146/96 O2 Sat by Pulse 93 97 97 Oximetry 04/10/19 04/10/19 04/10/19 07:01 07:11 07:21 Temperature Pulse Rate 105 H 103 H 100 H Pulse Rate [ From Monitor] Respiratory 12 11 L 18 Rate Blood Pressure 135/102 135/102 146/96 O2 Sat by Pulse 93 97 97 Oximetry 04/10/19 04/10/19 04/10/19 07:31 07:41 07:51 Temperature Pulse Rate 103 H 101 H 103 H Pulse Rate [ From Monitor] Respiratory 12 17 18 Rate Blood Pressure 144/107 144/107 144/107 O2 Sat by Pulse 96 97 96 Oximetry 04/10/19 04/10/19 04/10/19 08:00 08:01 08:11 Temperature 97.9 F Pulse Rate 101 H 105 H Pulse Rate [ 107 H From Monitor] Respiratory 18 21 16 Rate Blood Pressure 128/87 128/87 O2 Sat by Pulse 98 97 98 Oximetry 04/10/19 04/10/19 04/10/19 08:21 08:31 08:41 Temperature Pulse Rate 113 H 108 H 105 H Pulse Rate [ From Monitor] Respiratory 17 27 H 11 L Rate Blood Pressure 144/107 144/107 144/107 O2 Sat by Pulse 99 96 94 Oximetry 04/10/19 04/10/19 04/10/19 08:45 08:51 09:01 Temperature Pulse Rate 105 H 109 H Pulse Rate [ From Monitor] Respiratory 15 11 L Rate Blood Pressure 144/107 118/95 O2 Sat by Pulse 96 96 94 Oximetry 04/10/19 04/10/19 04/10/19 09:11 09:21 09:31 Temperature Pulse Rate 106 H 123 H 107 H Pulse Rate [ From Monitor] Respiratory 14 24 15 Rate Blood Pressure 118/95 118/95 126/92 O2 Sat by Pulse 96 96 96 Oximetry 04/10/19 04/10/19 04/10/19 09:41 09:51 10:01 Temperature Pulse Rate 109 H 105 H 106 H Pulse Rate [ From Monitor] Respiratory 16 15 12 Rate Blood Pressure 126/92 126/92 118/91 O2 Sat by Pulse 96 99 93 Oximetry 04/10/19 04/10/19 04/10/19 10:11 10:21 10:31 Temperature Pulse Rate 109 H 113 H 107 H Pulse Rate [ From Monitor] Respiratory 20 12 15 Rate Blood Pressure 118/91 118/91 129/93 O2 Sat by Pulse 98 94 Oximetry 04/10/19 04/10/19 04/10/19 10:41 10:43 10:51 Temperature Pulse Rate 113 H 113 H 109 H Pulse Rate [ From Monitor] Respiratory 14 16 Rate Blood Pressure 129/93 129/93 118/91 O2 Sat by Pulse 95 94 Oximetry Constitutional: no acute distress, alert, other (middle aged morbidly obese AAM, normocephalic and atraumatic with mildly increased resp effort at rest) Eyes: non-icteric ENT: oropharynx moist, other (mallampati 4) Neck: supple, no lymphadenopathy, no JVD, other (large neck circumference) Effort: mildly labored Ascultation: Bilateral: clear Percussion: Bilateral: not dull Cardiovascular: irregular rhythm, other (No R/M) Gastrointestinal: normoactive bowel sounds, soft, non-tender, non-distended, other (No HSM) Integumentary: normal Extremities: no cyanosis, no edema, pulses normal, no ischemia or petechiae Neurologic: normal mental status, non-focal exam, pupils equal and round, motor strength normal and Psychiatric: mood appropriate, affect normal CBC and BMP: 04/12/19 05:06 04/10/19 04:25 ABG, PT/INR, D-dimer: PT/INR, D-dimer PT 13.1 Sec. (12.2-14.9) 04/08/19 16:09 INR 1.02 (0.87-1.13) 04/08/19 16:09 Abnormal lab findings: Abnormal Labs 04/08/19 04/08/19 04/08/19 16:09 16:09 18:01 RBC Seg Neutrophils % 71.0 H Heparin Anti-Xa Level Creatinine Glucose 133 H Troponin T 0.099 H Albumin 3.8 L 04/08/19 04/09/19 04/09/19 20:42 03:23 10:26 RBC Seg Neutrophils % Heparin Anti-Xa Level 0.21 L Creatinine 0.7 L Glucose 114 H Troponin T 0.094 H Albumin 3.7 L 04/10/19 04/10/19 04:25 04:25 RBC 5.16 H Seg Neutrophils % Heparin Anti-Xa Level Creatinine Glucose 112 H Troponin T Albumin Chest x-ray: image reviewed Allied health notes reviewed: nursing
--- NOTE | 2019-04-10 13:10 | Progress Note ---
Assessment and Plan - Patient Problems (1) Atrial flutter with rapid ventricular response Current Visit: Yes Status: Acute Plan to address problem: Cardiology note reviewed Continue IV heparin and IV amiodarone Patient is moderately tachycardiac Continue beta antonio Scheduled for JESSICA in a.m. Downgraded to IMCU per cardiology and pulmonary recommendations (2) Chest pain Current Visit: Yes Status: Acute Qualifiers: Ischemic chest pain type: unspecified angina pectoris type Plan to address problem: Cardiology following Note reviewed Borderline elevated troponin Atypical elevation per cardiology note Continue management per their recommendation (3) DVT prophylaxis Current Visit: Yes Status: Acute Plan to address problem: Continue IV heparin at this time (4) HTN (hypertension) Current Visit: Yes Status: Chronic Qualifiers: Hypertension type: essential hypertension Qualified Code(s): I10 - Essen tial (primary) hypertension Plan to address problem: Continue beta antonio (5) Obesity Current Visit: Yes Status: Chronic Qualifiers: Obesity type: due to excess calories Serious obesity comorbidity presence: with serious comorbidity Plan to address problem: Importance of weight loss and calorie restriction discussed with patient (6) Sleep apnea Current Visit: Yes Status: Chronic Qualifiers: Sleep apnea type: unspecified type Qualified Code(s): G47.30 - Sleep apnea, unspecified Plan to address problem: Pulmonary note reviewed Continue CPAP at at bedtime Subjective Date of service: 04/10/19 Interval history: Patient is alert and oriented and offers no specific complaints he denies any chest pain or shortness of breath or palpitations Cardiology and pulmonary notes reviewed Lab results reviewed 12 point review of systems is essentially negative at this time Objective - Constitutional Vitals: Vital Signs - 12hr 04/10/19 04/10/19 04/10/19 01:11 01:21 01:31 Temperature Pulse Rate 90 93 H 93 H Pulse Rate [ From Monitor] Respiratory 14 20 15 Rate Blood Pressure 137/91 137/91 144/72 O2 Sat by Pulse 98 99 97 Oximetry 04/10/19 04/10/19 04/10/19 01:41 01:45 01:51 Temperature Pulse Rate 94 H 94 H 96 H Pulse Rate [ 105 H From Monitor] Respiratory 14 17 18 Rate Blood Pressure 144/72 144/72 O2 Sat by Pulse 98 98 98 Oximetry 04/10/19 04/10/19 04/10/19 02:01 02:11 02:21 Temperature Pulse Rate 94 H 94 H 91 H Pulse Rate [ From Monitor] Respiratory 16 13 17 Rate Blood Pressure 143/86 144/72 144/72 O2 Sat by Pulse 95 96 94 Oximetry 04/10/19 04/10/19 04/10/19 02:31 02:41 02:51 Temperature Pulse Rate 89 91 H 95 H Pulse Rate [ From Monitor] Respiratory 13 13 19 Rate Blood Pressure 136/79 136/79 136/79 O2 Sat by Pulse 97 96 98 Oximetry 04/10/19 04/10/19 04/10/19 03:01 03:09 03:11 Temperature Pulse Rate 92 H 92 H Pulse Rate [ 105 H From Monitor] Respiratory 12 17 14 Rate Blood Pressure 129/80 136/79 O2 Sat by Pulse 95 98 96 Oximetry 04/10/19 04/10/19 04/10/19 03:21 03:31 03:41 Temperature Pulse Rate 94 H 98 H 84 Pulse Rate [ From Monitor] Respiratory 13 13 13 Rate Blood Pressure 136/79 127/87 129/80 O2 Sat by Pulse 97 96 97 Oximetry 04/10/19 04/10/19 04/10/19 03:51 04:00 04:01 Temperature 98.8 F Pulse Rate 97 H 123 H Pulse Rate [ From Monitor] Respiratory 18 16 Rate Blood Pressure 129/80 129/80 O2 Sat by Pulse 99 96 Oximetry 04/10/19 04/10/19 04/10/19 04:05 04:11 04:21 Temperature Pulse Rate 102 H 105 H Pulse Rate [ 105 H From Monitor] Respiratory 17 12 18 Rate Blood Pressure 129/80 129/80 O2 Sat by Pulse 98 98 97 Oximetry 04/10/19 04/10/19 04/10/19 04:31 04:41 04:51 Temperature Pulse Rate 106 H 104 H 100 H Pulse Rate [ From Monitor] Respiratory 14 13 14 Rate Blood Pressure 129/80 119/81 119/81 O2 Sat by Pulse 94 97 96 Oximetry 04/10/19 04/10/19 04/10/19 05:01 05:11 05:16 Temperature Pulse Rate 101 H 104 H 105 H Pulse Rate [ From Monitor] Respiratory 15 15 16 Rate Blood Pressure 120/73 119/81 120/73 O2 Sat by Pulse 93 96 95 Oximetry 04/10/19 04/10/19 04/10/19 05:21 05:31 05:41 Temperature Pulse Rate 99 H 104 H 107 H Pulse Rate [ From Monitor] Respiratory 15 20 18 Rate Blood Pressure 119/81 119/81 122/91 O2 Sat by Pulse 91 86 92 Oximetry 04/10/19 04/10/19 04/10/19 05:45 05:51 06:01 Temperature Pulse Rate 104 H 107 H Pulse Rate [ From Monitor] Respiratory 17 15 20 Rate Blood Pressure 122/91 144/101 O2 Sat by Pulse 98 90 92 Oximetry 04/10/19 04/10/19 04/10/19 06:11 06:21 06:30 Temperature Pulse Rate 104 H 103 H 104 H Pulse Rate [ From Monitor] Respiratory 12 14 19 Rate Blood Pressure 144/101 122/91 146/96 O2 Sat by Pulse 94 97 93 Oximetry 04/10/19 04/10/19 04/10/19 06:41 06:51 07:01 Temperature Pulse Rate 119 H 108 H 105 H Pulse Rate [ From Monitor] Respiratory 23 14 12 Rate Blood Pressure 146/96 146/96 135/102 O2 Sat by Pulse 97 97 93 Oximetry 04/10/19 04/10/19 04/10/19 07:11 07:21 07:31 Temperature Pulse Rate 103 H 100 H 103 H Pulse Rate [ From Monitor] Respiratory 11 L 18 12 Rate Blood Pressure 135/102 146/96 144/107 O2 Sat by Pulse 97 97 96 Oximetry 04/10/19 04/10/19 04/10/19 07:41 07:51 08:00 Temperature 97.9 F Pulse Rate 101 H 103 H Pulse Rate [ 107 H From Monitor] Respiratory 17 18 18 Rate Blood Pressure 144/107 144/107 O2 Sat by Pulse 97 96 98 Oximetry 04/10/19 04/10/19 04/10/19 08:01 08:11 08:21 Temperature Pulse Rate 101 H 105 H 113 H Pulse Rate [ From Monitor] Respiratory 21 16 17 Rate Blood Pressure 128/87 128/87 144/107 O2 Sat by Pulse 97 98 99 Oximetry 04/10/19 04/10/19 04/10/19 08:31 08:41 08:45 Temperature Pulse Rate 108 H 105 H Pulse Rate [ From Monitor] Respiratory 27 H 11 L Rate Blood Pressure 144/107 144/107 O2 Sat by Pulse 96 94 96 Oximetry 04/10/19 04/10/19 04/10/19 08:51 09:01 09:11 Temperature Pulse Rate 105 H 109 H 106 H Pulse Rate [ From Monitor] Respiratory 15 11 L 14 Rate Blood Pressure 144/107 118/95 118/95 O2 Sat by Pulse 96 94 96 Oximetry 04/10/19 04/10/19 04/10/19 09:21 09:31 09:41 Temperature Pulse Rate 123 H 107 H 109 H Pulse Rate [ From Monitor] Respiratory 24 15 16 Rate Blood Pressure 118/95 126/92 126/92 O2 Sat by Pulse 96 96 96 Oximetry 04/10/19 04/10/19 04/10/19 09:51 10:01 10:11 Temperature Pulse Rate 105 H 106 H 109 H Pulse Rate [ From Monitor] Respiratory 15 12 20 Rate Blood Pressure 126/92 118/91 118/91 O2 Sat by Pulse 99 93 98 Oximetry 04/10/19 04/10/19 04/10/19 10:21 10:31 10:41 Temperature Pulse Rate 113 H 107 H 113 H Pulse Rate [ From Monitor] Respiratory 12 15 14 Rate Blood Pressure 118/91 129/93 129/93 O2 Sat by Pulse 94 95 Oximetry 04/10/19 04/10/19 04/10/19 10:43 10:51 11:01 Temperature Pulse Rate 113 H 109 H 101 H Pulse Rate [ From Monitor] Respiratory 16 21 Rate Blood Pressure 129/93 118/91 135/85 O2 Sat by Pulse 94 91 Oximetry 04/10/19 04/10/19 04/10/19 11:11 11:21 11:31 Temperature Pulse Rate 109 H 109 H 107 H Pulse Rate [ From Monitor] Respiratory 21 21 15 Rate Blood Pressure 135/85 135/85 115/82 O2 Sat by Pulse 97 96 92 Oximetry 04/10/19 04/10/19 04/10/19 11:41 11:51 12:01 Temperature Pulse Rate 117 H 112 H 113 H Pulse Rate [ From Monitor] Respiratory 16 18 17 Rate Blood Pressure 115/82 115/82 115/89 O2 Sat by Pulse 94 92 92 Oximetry 04/10/19 12:11 Temperature Pulse Rate 117 H Pulse Rate [ From Monitor] Respiratory 17 Rate Blood Pressure 115/89 O2 Sat by Pulse 95 Oximetry General appearance: Present: no acute distress - EENT Eyes: PERRL, EOM intact ENT: hearing intact, clear oral mucosa - Neck Neck: supple, normal ROM, no masses or JVD - Respiratory Respiratory effort: normal Respiratory: bilateral: CTA - Cardiovascular Rhythm: irregularly irregular Heart Sounds: Present: S1 & S2 Extremities: No edema - Gastrointestinal General gastrointestinal: Present: soft, non-tender. Absent: hepatomegaly, splenomegaly Rectal Exam: deferred - Integumentary Integumentary: clear - Musculoskeletal Musculoskeletal: strength equal bilaterally - Neurologic Neurologic: no focal deficits, moves all extremities - Psychiatric Psychiatric: appropriate mood/affect - Labs CBC & Chem 7: 04/10/19 04:25 04/10/19 04:25 Labs: Abnormal lab results 04/10/19 04/10/19 Range/Units 04:25 04:25 RBC 5.16 H (3.65-5.03) M/mm3 Glucose 112 H (75-100) mg/dL
[2019-04-10] MEDS: PEPCID PO SCH (14:07)
[2019-04-10] MEDS: CORDARONE PO SCH (14:07)
--- NOTE | 2019-04-11 00:20 | Consultation ---
PULMONARY/CRITICAL CARE CONSULTATION CONSULTING PHYSICIAN: Donaldo Barnes MD REASON FOR CONSULTATION: Atrial fibrillation/flutter with rapid ventricular response. CHIEF COMPLAINT AND HISTORY OF PRESENT ILLNESS: As follows: The patient is a 54-year-old -[place] male with a past medical history of being obese as well as obstructive sleep apnea who was recently diagnosed with hypertension. He had presented to the hospital complaining of about an acute onset of shortness of breath, diaphoresis, chest pain that was on the left side of the chest. 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 However, on this day, he felt like there was something really going on. He came into the Emergency Room, and in the Emergency Room, he was noted actually en route to be in a supraventricular tachycardia of some sort with a rate of about 239. He denied any palpitations. He states he was recently started on a diuretic medication for his hypertension. Of note, he has not been compliant with his CPAP therapy for perhaps a few years. In the Emergency Room, he was evaluated and essentially found to be in atrial fibrillation with a rapid ventricular response. He was started on a Cardizem drip. The patient was also started on IV heparin therapy. ICU admission was requested. When I stopped by to see him, he was resting in bed, feeling better. Denies any nausea, vomiting, or overt aspiration. Denied any new onset leg pain or swelling either unilaterally or bilaterally or any suggestion of venous thromboembolic event. He denied any loss of consciousness. He denied any prior history of coronary artery disease. He stated this was a new onset diagnosis for him. This really is as much of the history of presentation as I have. PAST MEDICAL HISTORY: Hypertension, obstructive sleep apnea, possible obesity hypoventilation syndrome. PAST SURGICAL HISTORY: Denies. MEDICATIONS: He was on at the time I stopped by to see him were reviewed. Pertinent medications included the following: He was on albuterol 2.5 mg nebulized q. 3 hours p.r.n. shortness of breath, aspirin 81 mg p.o. daily, IV heparin drip was going at 1650 units per hour and adjusted per protocol. Amiodarone drip was going at 1 mg per minute, metoprolol 50 mg p.o. b.i.d., Percocet 5/325 one tablet p.o. q. 6 hours p.r.n. moderate pain. ALLERGIES: No known drug allergies. DIET: Morbidly obese. Actually states he has gained weight since he had a sleep study done. FAMILY AND SOCIAL HISTORY: Lives in the community. Denies alcohol, tobacco, or illicit drug use or abuse. There is a family history of diabetes and hypertension. REVIEW OF SYSTEMS: No overt loss of consciousness. No new onset seizures. No new onset focal weakness. Denies gross hematochezia or melena. Denies gross hematuria or dysuria. Denies hematemesis. Denies hemoptysis. Denies polydipsia or polyuria. He describes some sort of element of heat intolerance. Complete 13-system review of systems obtained. Pertinent positives and/or negatives as in body of history above, otherwise they were noncontributory. PHYSICAL EXAMINATION: VITAL SIGNS: At presentation in the Emergency Room, review of the vital signs show that he was afebrile, temperature 98.4 degrees Fahrenheit, pulse was 223, respiratory rate was 13, blood pressure 118/77, O2 sats were 97%, inspired oxygen concentration at that time was not recorded. When I stopped by to see him, his O2 sats were 94% that was on 2 liters nasal cannula. GENERAL: Middle-aged looking obese -[place] male. Normocephalic, atraumatic, talking to me with uninterrupted sentences without significant respiratory distress at rest. HEAD, EYES, EARS, NOSE AND THROAT: He is anicteric. No conjunctival erythema. Oropharynx is moist. Mallampati #4 oropharynx. No gross jugular venous distention, no thyromegaly. He does have a large neck circumference. Grossly, there were no palpable lymph nodes in the supraclavicular or submandibular lymph node chains. LUNGS: Auscultation of both lung jefferson were unremarkable. Lungs were clear bilaterally with good bilateral air movement. HEART: Heart sounds 1 and 2 were heard. Irregularly irregular rate and rhythm at the time of my evaluation without overt rubs or murmurs. ABDOMEN: Soft, full, protuberant. Bowel sounds are positive, nontender, no palpable hepatosplenomegaly. EXTREMITIES: Without overt digital clubbing, no cyanosis, no pedal edema. Pedal pulses were 2+ bilaterally. NEUROLOGIC: Pupils were equal, round, about 4 mm, reactive to light. Extraocular muscle movements were intact. He moved all 4 extremities spontaneously. SKIN: Normal turgor. No cellulitis, no rash. LABORATORY DATA: From my review is as follows: Admission white cell count 10,700, hemoglobin 14.6, hematocrit 43.2, platelet count 254. INR 1.02. Serum sodium 141, potassium 4.0, chloride 102, bicarbonate 30, BUN 20, creatinine 1.1, glucose 133. Liver function test within normal limits. Troponin was up at 0.099. Albumin slightly diminished at 3.8. TSH and free T4 within normal limits. Urine drug screen was negative. No microbiology studies. A chest x-ray was done. I have reviewed the chest x-ray as well as the radiologist's interpretation, borderline cardiomegaly if you ask me, it is an AP film, but even then suggestion of borderline to gross cardiomegaly, no focal infiltrate, perhaps mild interstitial edema, probably accentuation of markings from the soft tissue shadows though. No gross pneumothorax, no gross bony fracture that I can see. He had an EKG done at presentation. I have reviewed the EKG. Essentially, it showed atrial flutter, evidence of prior anteroseptal CT. No obvious ST elevations. ASSESSMENT: 1. Atrial fibrillation with a rapid ventricular response. 2. Shortness of breath. 3. Obstructive sleep apnea. 4. Hypertension. 5. Morbid obesity. 6. Elevated serum troponin. PLAN: He will continue on the amiodarone drip as well as the IV heparin therapy. He will also continue on metoprolol. Final rate control decisions in terms of oral amiodarone or just beta antonio therapy as well as further elements of the acute coronary syndrome workup will be deferred to the commercial development manager. I have taken the time to explain to him the link between untreated obstructive sleep apnea and the development of atrial fibrillation. I have urged him to as [facility] since he has put on a lot of weight according to him since his last sleep study, he probably needs a new sleep study at this time, but again that needs to be treated. In the meantime, he will be started on GI prophylaxis, especially with him being on full anticoagulation. He will likely need to be on long-term anticoagulation therapy also. He was taking some amoxicillin at admission for reported dental issue. Prior to coming in, he should complete that amoxicillin dose as prescribed. Flu and pneumonia vaccination will be addressed per protocol. He is critically ill on life-sustaining interventions including the Cardizem drip, amiodarone and IV heparin at high risk of decompensation including the risk of . At this time, I spent about 30-35 minutes of critical care time without overlap and excluding any procedural time that may be necessary. He will be observed in the intensive care unit. I believe while he is on the Cardizem drip and once we can get him off of the IV medications and if he remains stable, he will be transferred to the medical floor. Thank you very much for the consult, Dr. Barnes. We will follow along and make further recommendations as picture progresses/becomes clearer. JOB# [id number] JOHN/MIKHAIL LOBO
[2019-04-11] MEDS ORDERED: HURRICAINE ONE 20% TOPICAL SPRAY MM NR ×2 (10:00→11:00)
[2019-04-11] MEDS ORDERED: XYLOCAINE MPF 2% ONE (10:00)
[2019-04-11] MEDS: HEPARIN/ 0.45% NACL-25,000 UNIT/500 ML 25,000 UNIT/500 ML BAG IV SCH (10:02)
[2019-04-11] MEDS: SODIUM CHLORIDE FLUSH SYRINGE 10 ML IV SCH ×2 (10:02→21:33)
[2019-04-11] MEDS ORDERED: VERSED ONE (12:08)
[2019-04-11] MEDS ORDERED: DIPRIVAN 10 MG/ML IV ONE ×2 (12:08)
[2019-04-11] MEDS ORDERED: HURRICAINE ONE 20% TOPICAL SPRAY MM (12:13)
--- NOTE | 2019-04-11 12:19 | Progress Note ---
Assessment and Plan Assessment and plan: New onset atrial flutter with rapid rate -Normal TSH. Negative UDS -Continue IV heparin drip -Rate fairly controlled on oral amiodarone and Lopressor -Pt is scheduled for JESSICA today -Cardiology following Elevated troponin -Probably demand ischemia due to above -No further investigative testing per cardiology Obstructive sleep apnea -Continue CPAP at night -For outpatient follow-up sleep study since patient had not being using his CPAP at home and his home setting is unknown. Essential Hypertension -Controlled on meds Obesity with BMI of 38.5 -Lifestyle modification recommended Disposition: Discharge planning post JESSICA Time spent: 35 minutes History Interval history: Patient is seen today. He has no new complaints. He denied chest pain or shortness of breath. Hospitalist Physical - Constitutional Vitals: Temp Pulse Resp BP Pulse Ox 98.2 F 104 H 19 137/94 95 04/11/19 08:00 04/11/19 11:00 04/11/19 11:00 04/11/19 11:00 04/11/19 11:00 General appearance: Present: no acute distress - EENT Eyes: Present: PERRL, EOM intact ENT: hearing intact, clear oral mucosa - Neck Neck: Present: supple - Respiratory Respiratory effort: normal Respiratory: bilateral: CTA - Cardiovascular Rhythm: irregularly irregular Heart Sounds: Present: S1 & S2 - Extremities Extremities: No edema - Abdominal General gastrointestinal: soft, non-tender, normal bowel sounds - Integumentary Integumentary: Present: clear, warm, dry - Psychiatric Psychiatric: appropriate mood/affect - Neurologic Neurologic: CNII-XII intact Results - Labs CBC & Chem 7: 04/10/19 04:25 04/10/19 04:25 Labs: Laboratory Last Values WBC 10.1 K/mm3 (4.5-11.0) 04/10/19 04:25 RBC 5.16 M/mm3 (3.65-5.03) H 04/10/19 04:25 Hgb 15.1 gm/dl (11.8-15.2) 04/10/19 04:25 Hct 44.6 % (35.5-45.6) 04/10/19 04:25 MCV 86 fl (84-94) 04/10/19 04:25 MCH 29 pg (28-32) 04/10/19 04:25 MCHC 34 % (32-34) 04/10/19 04:25 RDW 13.9 % (13.2-15.2) 04/10/19 04:25 Plt Count 253 K/mm3 (140-440) 04/10/19 04:25 Lymph % (Auto) 27.0 % (13.4-35.0) 04/10/19 04:25 [place] % (Auto) 7.0 % (0.0-7.3) 04/10/19 04:25 Eos % (Auto) 1.6 % (0.0-4.3) 04/10/19 04:25 Baso % (Auto) 0.6 % (0.0-1.8) 04/10/19 04:25 Lymph # 2.7 K/mm3 (1.2-5.4) 04/10/19 04:25 [place] # 0.7 K/mm3 (0.0-0.8) 04/10/19 04:25 Eos # 0.2 K/mm3 (0.0-0.4) 04/10/19 04:25 Baso # 0.1 K/mm3 (0.0-0.1) 04/10/19 04:25 Seg Neutrophils % 63.8 % (40.0-70.0) 04/10/19 04:25 Seg Neutrophils # 6.4 K/mm3 (1.8-7.7) 04/10/19 04:25 PT 13.1 Sec. (12.2-14.9) 04/08/19 16:09 INR 1.02 (0.87-1.13) 04/08/19 16:09 APTT 32.6 Sec. (24.2-36.6) 04/08/19 16:09 Heparin Anti-Xa Level 0.32 U.I./ml (0.3-0.7) 04/10/19 17:41 Sodium 138 mmol/L (137-145) 04/10/19 04:25 Potassium 4.1 mmol/L (3.6-5.0) 04/10/19 04:25 Chloride 100.5 mmol/L (98-107) 04/10/19 04:25 Carbon Dioxide 28 mmol/L (22-30) 04/10/19 04:25 14 mmol/L 04/10/19 04:25 BUN 14 mg/dL (9-20) 04/10/19 04:25 0.9 mg/dL (0.8-1.5) 04/10/19 04:25 Estimated GFR > 60 ml/min 04/10/19 04:25 16 % 04/10/19 04:25 Glucose 112 mg/dL (75-100) H 04/10/19 04:25 Calcium 8.8 mg/dL (8.4-10.2) 04/10/19 04:25 Magnesium 2.20 mg/dL (1.7-2.3) 04/08/19 16:13 0.30 mg/dL (0.1-1.2) 04/09/19 03:23 AST 19 units/L (5-40) 04/09/19 03:23 ALT 21 units/L (7-56) 04/09/19 03:23 66 units/L (35-129) 04/09/19 03:23 0.094 ng/mL (0.00-0.029) H 04/08/19 20:42 NT-Pro-B Natriuret Pep 92.38 pg/mL (0-900) 04/08/19 20:42 7.2 g/dL (6.3-8.2) 04/09/19 03:23 3.7 g/dL (3.9-5) L 04/09/19 03:23 1.1 % 04/09/19 03:23 TSH 1.080 mlU/mL (0.270-4.200) 04/08/19 16:09 Free T4 1.21 ng/dL (0.76-1.46) 04/08/19 16:09 Presumptive negative 04/08/19 16:45 Presumptive negative 04/08/19 16:45 Ur Barbiturates Screen Presumptive negative 04/08/19 16:45 Ur Phencyclidine Scrn Presumptive negative 04/08/19 16:45 Ur Amphetamines Screen Presumptive negative 04/08/19 16:45 U Benzodiazepines Scrn Presumptive negative 04/08/19 16:45 Presumptive negative 04/08/19 16:45 U Marijuana (THC) Screen Presumptive negative 04/08/19 16:45 Disclamer 04/08/19 16:45 Active Medications - Current Medications Current Medications: Generic Name Dose Route Start Last Admin Trade Name Freq PRN Reason Stop Dose Admin Albuterol 2.5 mg 04/08/19 19:03 Proventil IH Q3H PRN Shortness Of Breath Amiodarone HCl 200 mg 04/10/19 14:00 04/10/19 14:07 Cordarone PO 200 mg QDAY MILTON Administration Aspirin 81 mg 04/09/19 11:00 04/10/19 10:43 Halfprin Ec PO 81 mg QDAY MILTON Administration Benzocaine 3 spray 04/11/19 11:00 Hurricaine One 20% Topical [place] MM 04/11/19 23:00 PREOP NR Famotidine 20 mg 04/10/19 13:00 04/10/19 14:07 Pepcid PO 20 mg DAILY MILTON Administration Heparin Sodium/Sodium Chloride 25,000 unit in 500 mls @ 30 mls/hr 04/08/19 16:00 04/11/19 10:02 Heparin/ 0.45% Nacl-25,000 Unit/500 Ml IV 1,650 units/hr TITR MILTON 33 mls/hr Administration Protocol 1,500 UNITS/HR Metoprolol Tartrate 50 mg 04/09/19 22:00 04/10/19 22:06 Lopressor PO 50 mg BID MILTON Administration Oxycodone/Acetaminophen 1 tab 04/08/19 19:03 Percocet 5/325 PO Q6H PRN Pain, Moderate (4-6) Prazosin HCl 1 mg 04/10/19 10:00 04/10/19 10:43 Minipress PO 1 mg DAILY MILTON Administration Sodium Chloride 10 ml 04/08/19 22:00 04/11/19 10:02 Sodium Chloride Flush Syringe 10 Ml IV 10 ml BID MILTON Administration Sodium Chloride 10 ml 04/08/19 19:03 Sodium Chloride Flush Syringe 10 Ml IV PRN PRN LINE FLUSH Nutrition/Malnutrition Assess - Dietary Evaluation Nutrition/Malnutrition Findings: Nutrition Notes Start: 04/09/19 08:37 Freq: Status: Active Protocol: Document 04/09/19 08:37 LP (Rec: 04/09/19 08:38 LP [id number]) Nutrition Notes Need for Assessment generated from: MD Order Initial or Follow up Brief Note Current Diagnosis Hypertension Other Pertinent Diagnosis NSTEMI, Aflutter Current Diet Cardiac Subjective/Other Information Consult for diet education. Pt states eating well and denies needs for diet education. Left handout on HTN diet. Nutrition Intervention Revisit per MD consult or patient Sign Off request:
[2019-04-11] MEDS ORDERED: NACL 0.9% 500 ML 500 ML ONE (12:22)
--- NOTE | 2019-04-11 12:31 | Anesthesia Day of Surgery ---
Anesthesia Day of Surgery - Day of Surgery Patient Examined: Yes Patient H&P Reviewed: Yes Patient is NPO: Yes
--- NOTE | 2019-04-11 12:32 | Anesthesia Consultation ---
Anesthesia Consult and Med Hx Date of service: 04/11/19 - Airway Anesthetic Teeth Evaluation: Good ROM Head & Neck: Adequate Mental/Hyoid Distance: Adequate Mallampati Class: Class III Intubation Access Assessment: Probably Good - Pulmonary Exam CTA: Yes - Cardiac Exam Cardiac Exam: RRR - Pre-Operative Health Status ASA Pre-Surgery Classification: ASA3 Proposed Anesthetic Plan: MAC - Pulmonary Hx Smoking: No Hx Asthma: No SOB: No COPD: No Hx Pneumonia: No Hx Sleep Apnea: Yes - Cardiovascular System Hx Hypertension: Yes Hx Cardia Arrhythmia: Yes (New onset afib ) - Central Nervous System Hx Psychiatric Problems: No - Other Systems Hx Cancer: No
--- NOTE | 2019-04-11 13:49 | Progress Note ---
Assessment and Plan Patient came back from cardioversion. Patient alert, awake. Denies chest pain, shortness of breath or cough.Patient is on 2 litres O2. O2 saturation 97%. Patients heart rate 80. B/P 138/94. - Patient Problems (1) Chest pain Current Visit: Yes Status: Acute Qualifiers: Ischemic chest pain type: unspecified angina pectoris type Plan to address problem: Management as per cardiology. (2) Diastolic CHF Current Visit: Yes Status: Acute Qualifiers: Heart failure chronicity: acute Qualified Code(s): I50.31 - Acute diastolic (congestive) heart failure Plan to address problem: Management as per cardiology. (3) NSTEMI (non-ST elevated myocardial infarction) Current Visit: Yes Status: Acute Plan to address problem: Management as per cardiology. (4) Atrial flutter with rapid ventricular response Current Visit: Yes Status: Acute Plan to address problem: Patient undergone cardioversion. Patient is on Heparin. Management as per cardiology. (5) HTN (hypertension) Current Visit: Yes Status: Chronic Qualifiers: Hypertension type: essential hypertension Qualified Code(s): I10 - Essential (primary) hypertension Plan to address problem: Management as per primary care. (6) Obesity hypoventilation syndrome Current Visit: Yes Status: Acute Plan to address problem: Patient is on BIPAP. Recommend to loose weight. (7) Sleep apnea Current Visit: Yes Status: Chronic Qualifiers: Sleep apnea type: unspecified type Qualified Code(s): G47.30 - Sleep apnea, unspecified Plan to address problem: Patient is on BIPAP. Recommend to loose weight. Subjective Date of service: 04/11/19 Interval history: Patient came back from cardioversion. Patient alert, awake. Denies chest pain, shortness of breath or cough.Patient is on 2 litres O2. O2 saturation 97%. Patients heart rate 80. B/P 138/94. Objective Vital Signs - 12hr 04/11/19 04/11/19 04/11/19 01:50 02:00 02:10 Temperature Temperature [ Post-Procedure] Pulse Rate 92 H 90 88 Pulse Rate [ From Monitor] Pulse Rate [ Intra-Procedure ] Pulse Rate [ Post-Procedure] Respiratory 18 15 18 Rate Respiratory Rate [Intra- Procedure] Respiratory Rate [Post- Procedure] Blood Pressure 169/130 130/80 130/80 Blood Pressure [Intra- Procedure] Blood Pressure [Post-Procedure ] O2 Sat by Pulse 97 97 97 Oximetry O2 Sat by Pulse Oximetry [ Intra-Procedure ] O2 Sat by Pulse Oximetry [Post -Procedure] 04/11/19 04/11/19 04/11/19 02:20 02:30 02:40 Temperature Temperature [ Post-Procedure] Pulse Rate 92 H 99 H 93 H Pulse Rate [ From Monitor] Pulse Rate [ Intra-Procedure ] Pulse Rate [ Post-Procedure] Respiratory 13 14 17 Rate Respiratory Rate [Intra- Procedure] Respiratory Rate [Post- Procedure] Blood Pressure 130/80 130/80 130/80 Blood Pressure [Intra- Procedure] Blood Pressure [Post-Procedure ] O2 Sat by Pulse 100 97 96 Oximetry O2 Sat by Pulse Oximetry [ Intra-Procedure ] O2 Sat by Pulse Oximetry [Post -Procedure] 04/11/19 04/11/19 04/11/19 02:43 02:50 03:00 Temperature 98.6 F Temperature [ Post-Procedure] Pulse Rate 93 H 93 H Pulse Rate [ From Monitor] Pulse Rate [ Intra-Procedure ] Pulse Rate [ Post-Procedure] Respiratory 16 15 Rate Respiratory Rate [Intra- Procedure] Respiratory Rate [Post- Procedure] Blood Pressure 130/80 130/80 Blood Pressure [Intra- Procedure] Blood Pressure [Post-Procedure ] O2 Sat by Pulse 97 97 Oximetry O2 Sat by Pulse Oximetry [ Intra-Procedure ] O2 Sat by Pulse Oximetry [Post -Procedure] 04/11/19 04/11/19 04/11/19 03:10 03:20 03:30 Temperature Temperature [ Post-Procedure] Pulse Rate 93 H 93 H 93 H Pulse Rate [ From Monitor] Pulse Rate [ Intra-Procedure ] Pulse Rate [ Post-Procedure] Respiratory 15 15 14 Rate Respiratory Rate [Intra- Procedure] Respiratory Rate [Post- Procedure] Blood Pressure 116/76 116/76 130/80 Blood Pressure [Intra- Procedure] Blood Pressure [Post-Procedure ] O2 Sat by Pulse 99 98 97 Oximetry O2 Sat by Pulse Oximetry [ Intra-Procedure ] O2 Sat by Pulse Oximetry [Post -Procedure] 04/11/19 04/11/19 04/11/19 03:40 03:50 04:00 Temperature Temperature [ Post-Procedure] Pulse Rate 95 H 92 H 102 H Pulse Rate [ 103 H From Monitor] Pulse Rate [ Intra-Procedure ] Pulse Rate [ Post-Procedure] Respiratory 15 11 L 15 Rate Respiratory Rate [Intra- Procedure] Respiratory Rate [Post- Procedure] Blood Pressure 130/80 130/80 114/91 Blood Pressure [Intra- Procedure] Blood Pressure [Post-Procedure ] O2 Sat by Pulse 98 96 99 Oximetry O2 Sat by Pulse Oximetry [ Intra-Procedure ] O2 Sat by Pulse Oximetry [Post -Procedure] 04/11/19 04/11/19 04/11/19 04:10 04:20 04:30 Temperature Temperature [ Post-Procedure] Pulse Rate 92 H 92 H 103 H Pulse Rate [ From Monitor] Pulse Rate [ Intra-Procedure ] Pulse Rate [ Post-Procedure] Respiratory 16 14 15 Rate Respiratory Rate [Intra- Procedure] Respiratory Rate [Post- Procedure] Blood Pressure 114/91 114/91 116/76 Blood Pressure [Intra- Procedure] Blood Pressure [Post-Procedure ] O2 Sat by Pulse 99 99 97 Oximetry O2 Sat by Pulse Oximetry [ Intra-Procedure ] O2 Sat by Pulse Oximetry [Post -Procedure] 04/11/19 04/11/19 04/11/19 04:40 04:50 05:00 Temperature Temperature [ Post-Procedure] Pulse Rate 97 H 93 H 92 H Pulse Rate [ From Monitor] Pulse Rate [ Intra-Procedure ] Pulse Rate [ Post-Procedure] Respiratory 14 13 15 Rate Respiratory Rate [Intra- Procedure] Respiratory Rate [Post- Procedure] Blood Pressure 116/76 116/76 116/76 Blood Pressure [Intra- Procedure] Blood Pressure [Post-Procedure ] O2 Sat by Pulse 99 98 99 Oximetry O2 Sat by Pulse Oximetry [ Intra-Procedure ] O2 Sat by Pulse Oximetry [Post -Procedure] 04/11/19 04/11/19 04/11/19 05:10 05:20 05:30 Temperature Temperature [ Post-Procedure] Pulse Rate 92 H 93 H 92 H Pulse Rate [ From Monitor] Pulse Rate [ Intra-Procedure ] Pulse Rate [ Post-Procedure] Respiratory 14 13 15 Rate Respiratory Rate [Intra- Procedure] Respiratory Rate [Post- Procedure] Blood Pressure 124/77 124/77 124/77 Blood Pressure [Intra- Procedure] Blood Pressure [Post-Procedure ] O2 Sat by Pulse 98 95 100 Oximetry O2 Sat by Pulse Oximetry [ Intra-Procedure ] O2 Sat by Pulse Oximetry [Post -Procedure] 04/11/19 04/11/19 04/11/19 05:40 05:50 06:00 Temperature Temperature [ Post-Procedure] Pulse Rate 103 H 113 H 100 H Pulse Rate [ From Monitor] Pulse Rate [ Intra-Procedure ] Pulse Rate [ Post-Procedure] Respiratory 18 14 14 Rate Respiratory Rate [Intra- Procedure] Respiratory Rate [Post- Procedure] Blood Pressure 124/77 124/77 123/86 Blood Pressure [Intra- Procedure] Blood Pressure [Post-Procedure ] O2 Sat by Pulse 99 99 97 Oximetry O2 Sat by Pulse Oximetry [ Intra-Procedure ] O2 Sat by Pulse Oximetry [Post -Procedure] 04/11/19 04/11/19 04/11/19 06:10 06:20 06:30 Temperature Temperature [ Post-Procedure] Pulse Rate 100 H 92 H 92 H Pulse Rate [ From Monitor] Pulse Rate [ Intra-Procedure ] Pulse Rate [ Post-Procedure] Respiratory 16 19 12 Rate Respiratory Rate [Intra- Procedure] Respiratory Rate [Post- Procedure] Blood Pressure 123/86 123/86 124/77 Blood Pressure [Intra- Procedure] Blood Pressure [Post-Procedure ] O2 Sat by Pulse 98 98 99 Oximetry O2 Sat by Pulse Oximetry [ Intra-Procedure ] O2 Sat by Pulse Oximetry [Post -Procedure] 04/11/19 04/11/19 04/11/19 06:40 06:50 07:00 Temperature Temperature [ Post-Procedure] Pulse Rate 93 H 100 H 97 H Pulse Rate [ From Monitor] Pulse Rate [ Intra-Procedure ] Pulse Rate [ Post-Procedure] Respiratory 11 L 12 11 L Rate Respiratory Rate [Intra- Procedure] Respiratory Rate [Post- Procedure] Blood Pressure 124/77 124/77 130/97 Blood Pressure [Intra- Procedure] Blood Pressure [Post-Procedure ] O2 Sat by Pulse 99 99 100 Oximetry O2 Sat by Pulse Oximetry [ Intra-Procedure ] O2 Sat by Pulse Oximetry [Post -Procedure] 04/11/19 04/11/19 04/11/19 07:10 07:20 07:30 Temperature Temperature [ Post-Procedure] Pulse Rate 122 H 107 H 105 H Pulse Rate [ From Monitor] Pulse Rate [ Intra-Procedure ] Pulse Rate [ Post-Procedure] Respiratory 25 H 17 19 Rate Respiratory Rate [Intra- Procedure] Respiratory Rate [Post- Procedure] Blood Pressure 130/97 130/97 123/86 Blood Pressure [Intra- Procedure] Blood Pressure [Post-Procedure ] O2 Sat by Pulse 95 94 94 Oximetry O2 Sat by Pulse Oximetry [ Intra-Procedure ] O2 Sat by Pulse Oximetry [Post -Procedure] 04/11/19 04/11/19 04/11/19 07:40 07:50 08:00 Temperature 98.2 F Temperature [ Post-Procedure] Pulse Rate 106 H 107 H 100 H Pulse Rate [ From Monitor] Pulse Rate [ Intra-Procedure ] Pulse Rate [ Post-Procedure] Respiratory 16 20 16 Rate Respiratory Rate [Intra- Procedure] Respiratory Rate [Post- Procedure] Blood Pressure 123/86 123/86 139/93 Blood Pressure [Intra- Procedure] Blood Pressure [Post-Procedure ] O2 Sat by Pulse 95 96 95 Oximetry O2 Sat by Pulse Oximetry [ Intra-Procedure ] O2 Sat by Pulse Oximetry [Post -Procedure] 04/11/19 04/11/19 04/11/19 08:10 08:20 08:30 Temperature Temperature [ Post-Procedure] Pulse Rate 117 H 101 H 108 H Pulse Rate [ From Monitor] Pulse Rate [ Intra-Procedure ] Pulse Rate [ Post-Procedure] Respiratory 21 17 19 Rate Respiratory Rate [Intra- Procedure] Respiratory Rate [Post- Procedure] Blood Pressure 139/93 139/93 139/93 Blood Pressure [Intra- Procedure] Blood Pressure [Post-Procedure ] O2 Sat by Pulse 97 96 96 Oximetry O2 Sat by Pulse Oximetry [ Intra-Procedure ] O2 Sat by Pulse Oximetry [Post -Procedure] 04/11/19 04/11/19 04/11/19 08:40 08:46 08:50 Temperature Temperature [ Post-Procedure] Pulse Rate 123 H 108 H Pulse Rate [ From Monitor] Pulse Rate [ Intra-Procedure ] Pulse Rate [ Post-Procedure] Respiratory 12 21 Rate Respiratory Rate [Intra- Procedure] Respiratory Rate [Post- Procedure] Blood Pressure 139/93 139/93 Blood Pressure [Intra- Procedure] Blood Pressure [Post-Procedure ] O2 Sat by Pulse 96 96 96 Oximetry O2 Sat by Pulse Oximetry [ Intra-Procedure ] O2 Sat by Pulse Oximetry [Post -Procedure] 04/11/19 04/11/19 04/11/19 09:00 10:00 11:00 Temperature Temperature [ Post-Procedure] Pulse Rate 100 H 116 H 104 H Pulse Rate [ From Monitor] Pulse Rate [ Intra-Procedure ] Pulse Rate [ Post-Procedure] Respiratory 22 11 L 19 Rate Respiratory Rate [Intra- Procedure] Respiratory Rate [Post- Procedure] Blood Pressure 139/93 152/83 137/94 Blood Pressure [Intra- Procedure] Blood Pressure [Post-Procedure ] O2 Sat by Pulse 95 97 95 Oximetry O2 Sat by Pulse Oximetry [ Intra-Procedure ] O2 Sat by Pulse Oximetry [Post -Procedure] 04/11/19 04/11/19 04/11/19 12:00 12:43 12:53 Temperature 98.1 F Temperature [ Post-Procedure] Pulse Rate 105 H Pulse Rate [ From Monitor] Pulse Rate [ 150 H Intra-Procedure ] Pulse Rate [ 87 Post-Procedure] Respiratory 14 Rate Respiratory 24 Rate [Intra- Procedure] Respiratory 22 Rate [Post- Procedure] Blood Pressure 139/113 Blood Pressure 207/111 [Intra- Procedure] Blood Pressure 144/99 [Post-Procedure ] O2 Sat by Pulse 97 Oximetry O2 Sat by Pulse 94 Oximetry [ Intra-Procedure ] O2 Sat by Pulse 99 Oximetry [Post -Procedure] 04/11/19 13:17 Temperature Temperature [ 98.7 F Post-Procedure] Pulse Rate Pulse Rate [ From Monitor] Pulse Rate [ Intra-Procedure ] Pulse Rate [ 96 H Post-Procedure] Respiratory Rate Respiratory Rate [Intra- Procedure] Respiratory 18 Rate [Post- Procedure] Blood Pressure Blood Pressure [Intra- Procedure] Blood Pressure 171/148 [Post-Procedure ] O2 Sat by Pulse Oximetry O2 Sat by Pulse Oximetry [ Intra-Procedure ] O2 Sat by Pulse 98 Oximetry [Post -Procedure] Constitutional: no acute distress, alert, other (middle aged morbidly obese AAM, normocephalic and atraumatic with mildly increased resp effort at rest) Eyes: non-icteric ENT: oropharynx moist, other (mallampati 4) Neck: supple, no lymphadenopathy, no JVD, other (large neck circumference) Effort: mildly labored Ascultation: Bilateral: diminished breath sounds Percussion: Bilateral: not dull Cardiovascular: irregular rhythm, other (No R/M) Gastrointestinal: normoactive bowel sounds, soft, non-tender, non-distended, other (No HSM) Integumentary: normal Extremities: no cyanosis, no edema, pulses normal, no ischemia or petechiae Neurologic: normal mental status, non-focal exam, pupils equal and round, motor strength normal and Psychiatric: mood appropriate, affect normal CBC and BMP: 04/10/19 04:25 04/10/19 04:25 ABG, PT/INR, D-dimer: PT/INR, D-dimer PT 13.1 Sec. (12.2-14.9) 04/08/19 16:09 INR 1.02 (0.87-1.13) 04/08/19 16:09 Abnormal lab findings: Abnormal Labs 04/08/19 04/08/19 04/08/19 16:09 16:09 18:01 RBC Seg Neutrophils % 71.0 H Heparin Anti-Xa Level Creatinine Glucose 133 H Troponin T 0.099 H Albumin 3.8 L 04/08/19 04/09/19 04/09/19 20:42 03:23 10:26 RBC Seg Neutrophils % Heparin Anti-Xa Level 0.21 L Creatinine 0.7 L Glucose 114 H Troponin T 0.094 H Albumin 3.7 L 04/10/19 04/10/19 04:25 04:25 RBC 5.16 H Seg Neutrophils % Heparin Anti-Xa Level Creatinine Glucose 112 H Troponin T Albumin Chest x-ray: report reviewed (Reported no acute abnormality), image reviewed Allied health notes reviewed: nursing
[2019-04-11] MEDS ORDERED: NACL 0.9% 500 ML 500 ML IV SCH (14:00)
[2019-04-11] MEDS: HALFPRIN EC PO SCH (14:48)
[2019-04-11] MEDS: LOPRESSOR PO SCH ×2 (14:48→21:28)
[2019-04-11] MEDS: PEPCID PO SCH (14:49)
[2019-04-11] MEDS: MINIPRESS PO SCH (14:49)
[2019-04-11] MEDS: CORDARONE PO SCH (14:49)
[2019-04-12 05:39] LABS: Hematocrit 41.9 % (35.5-45.6)
[2019-04-12] MEDS: LOPRESSOR PO SCH (09:23)
[2019-04-12] MEDS: HALFPRIN EC PO SCH (09:23)
[2019-04-12] MEDS: CORDARONE PO SCH (09:23)
[2019-04-12] MEDS: SODIUM CHLORIDE FLUSH SYRINGE 10 ML IV SCH (09:23)
[2019-04-12] MEDS: PEPCID PO SCH (09:23)
--- NOTE | 2019-04-12 11:37 | Progress Note ---
<ÁLVARO THOMASON - Last Filed: 04/12/19 11:41> Assessment and Plan Atypical atrial flutter Normal TSH Negative UDS s/p JESSICA/CV currently in sinus rhythm Chest pain Non-specific troponin Sleep apnea Obesity Systemic Hypertension Recommendations: Continue amiodarone and beta blockers for paroxysmal atrial flutter. MCC oral anticoagulation therapy with Xarelto. Stable for discharge home today, cardiac simeon. Patient will f/u with [facility] within 5-7 days. Subjective Date of service: 04/12/19 Interval history: status post JESSICA/CV 04/11. Patient has no complaints. Stable sinus rhythm on telemetry. Objective Vital Signs Temp Temp Pulse Pulse Pulse Pulse Resp 04/12/19 09:23 77 04/12/19 09:00 70 04/12/19 08:55 04/12/19 08:00 97.9 F 65 71 04/12/19 07:00 62 04/12/19 06:00 59 L 04/12/19 05:00 68 04/12/19 04:00 61 04/12/19 03:00 63 04/12/19 02:00 63 04/12/19 01:00 54 L 04/12/19 00:00 97.5 F L 58 L 04/11/19 23:50 71 14 04/11/19 23:00 67 04/11/19 22:00 67 04/11/19 21:28 68 04/11/19 21:00 58 L 18 04/11/19 20:00 98.9 F 68 17 04/11/19 19:46 64 17 04/11/19 19:00 73 14 04/11/19 18:00 76 21 04/11/19 17:00 72 18 04/11/19 16:00 81 04/11/19 15:00 80 23 04/11/19 14:48 79 04/11/19 14:29 86 13 04/11/19 14:00 90 04/11/19 13:44 91 H 04/11/19 13:31 89 04/11/19 13:17 98.7 F 96 H 04/11/19 12:53 87 04/11/19 12:43 150 H 04/11/19 12:00 98.1 F 105 H 14 Resp Resp BP BP BP Pulse Ox Pulse Ox 07/31/19 09:23 127/69 04/12/19 09:00 129/76 94 04/12/19 08:55 97 04/12/19 08:00 141/89 94 04/12/19 07:00 129/76 100 04/12/19 06:00 126/86 94 04/12/19 05:00 150/98 99 04/12/19 04:00 124/82 96 04/12/19 03:00 114/66 97 04/12/19 02:00 101/56 97 04/12/19 01:00 135/76 04/12/19 00:00 115/58 04/11/19 23:50 119/53 99 04/11/19 23:00 124/73 99 04/11/19 22:00 124/69 94 04/11/19 21:28 118/70 04/11/19 21:00 157/109 94 04/11/19 20:00 159/101 04/11/19 19:46 130/77 95 04/11/19 19:00 124/82 90 04/11/19 18:00 114/75 04/11/19 17:00 130/71 97 04/11/19 16:00 118/70 97 04/11/19 15:00 138/94 97 04/11/19 14:48 136/97 04/11/19 14:29 04/11/19 14:00 18 122/80 04/11/19 13:44 20 123/86 04/11/19 13:31 20 143/77 04/11/19 13:17 18 171/148 04/11/19 12:53 22 144/99 04/11/19 12:43 24 207/111 94 04/11/19 12:00 139/113 97 Pulse Ox 04/12/19 09:23 04/12/19 09:00 04/12/19 08:55 04/12/19 08:00 04/12/19 07:00 04/12/19 06:00 04/12/19 05:00 04/12/19 04:00 04/12/19 03:00 04/12/19 02:00 04/12/19 01:00 04/12/19 00:00 04/11/19 23:50 04/11/19 23:00 04/11/19 22:00 04/11/19 21:28 04/11/19 21:00 04/11/19 20:00 04/11/19 19:46 04/11/19 19:00 04/11/19 18:00 04/11/19 17:00 04/11/19 16:00 04/11/19 15:00 04/11/19 14:48 04/11/19 14:29 04/11/19 14:00 96 04/11/19 13:44 95 04/11/19 13:31 97 04/11/19 13:17 98 04/11/19 12:53 99 04/11/19 12:43 04/11/19 12:00 - Physical Examination General: No Apparent Distress HEENT: Positive: PERRL Neck: Positive: neck supple Cardiac: Positive: Reg Rate and Rhythm Lungs: Positive: Decreased Breath Sounds Neuro: Positive: Grossly Intact - Labs and Meds CBC 04/12/19 Range/Units 05:06 Hgb 14.0 (11.8-15.2) gm/dl Hct 41.9 (35.5-45.6) % Plt Count 223 (140-440) K/mm3 - Allied health notes Allied health notes reviewed: nursing <PREET BUSTILLO - Last Filed: 04/12/19 11:53> Assessment and Plan Has seen and evaluated the patient agrees with the assessment and plan. Patient was admitted with atypical atrial flutter status post JESSICA with successful cardioversion to sinus rhythm. At this time continue medical therapy with by mouth amiodarone and beta blockers. Maximize medical therapy as blood pressure allows. Recommend long-term anticoagulation while to as the patient ChadSVASc is 1. Risks and benefits of medication have been discussed with the patient. Objective Vital Signs Temp Temp Pulse Pulse Pulse Pulse Resp 04/12/19 09:23 77 04/12/19 09:00 70 04/12/19 08:55 04/12/19 08:00 97.9 F 65 71 04/12/19 07:00 62 04/12/19 06:00 59 L 04/12/19 05:00 68 04/12/19 04:00 61 04/12/19 03:00 63 04/12/19 02:00 63 04/12/19 01:00 54 L 04/12/19 00:00 97.5 F L 58 L 04/11/19 23:50 71 14 04/11/19 23:00 67 04/11/19 22:00 67 04/11/19 21:28 68 04/11/19 21:00 58 L 18 04/11/19 20:00 98.9 F 68 17 04/11/19 19:46 64 17 04/11/19 19:00 73 14 04/11/19 18:00 76 21 04/11/19 17:00 72 18 04/11/19 16:00 81 04/11/19 15:00 80 23 04/11/19 14:48 79 04/11/19 14:29 86 13 04/11/19 14:00 90 04/11/19 13:44 91 H 04/11/19 13:31 89 04/11/19 13:17 98.7 F 96 H 04/11/19 12:53 87 04/11/19 12:43 150 H 04/11/19 12:00 98.1 F 105 H 14 Resp Resp BP BP BP Pulse Ox Pulse Ox 04/12/19 09:23 127/69 04/12/19 09:00 129/76 94 04/12/19 08:55 97 04/12/19 08:00 141/89 94 04/12/19 07:00 129/76 100 04/12/19 06:00 126/86 94 04/12/19 05:00 150/98 99 04/12/19 04:00 124/82 96 04/12/19 03:00 114/66 97 04/12/19 02:00 101/56 97 04/12/19 01:00 135/76 04/12/19 00:00 115/58 04/11/19 23:50 119/53 99 04/11/19 23:00 124/73 99 04/11/19 22:00 124/69 94 04/11/19 21:28 118/70 04/11/19 21:00 157/109 94 04/11/19 20:00 159/101 04/11/19 19:46 130/77 95 04/11/19 19:00 124/82 90 04/11/19 18:00 114/75 04/11/19 17:00 130/71 97 04/11/19 16:00 118/70 97 04/11/19 15:00 138/94 97 04/11/19 14:48 136/97 04/11/19 14:29 04/11/19 14:00 18 122/80 04/11/19 13:44 20 123/86 04/11/19 13:31 20 143/77 04/11/19 13:17 18 171/148 04/11/19 12:53 22 144/99 04/11/19 12:43 24 207/111 94 04/11/19 12:00 139/113 97 Pulse Ox 04/12/19 09:23 04/12/19 09:00 04/12/19 08:55 04/12/19 08:00 04/12/19 07:00 04/12/19 06:00 04/12/19 05:00 04/12/19 04:00 04/12/19 03:00 04/12/19 02:00 04/12/19 01:00 04/12/19 00:00 04/11/19 23:50 04/11/19 23:00 04/11/19 22:00 04/11/19 21:28 04/11/19 21:00 04/11/19 20:00 04/11/19 19:46 04/11/19 19:00 04/11/19 18:00 04/11/19 17:00 04/11/19 16:00 04/11/19 15:00 04/11/19 14:48 04/11/19 14:29 04/11/19 14:00 96 04/11/19 13:44 95 04/11/19 13:31 97 04/11/19 13:17 98 04/11/19 12:53 99 04/11/19 12:43 04/11/19 12:00 - Labs and Meds CBC 04/12/19 Range/Units 05:06 Hgb 14.0 (11.8-15.2) gm/dl Hct 41.9 (35.5-45.6) % Plt Count 223 (140-440) K/mm3
[2019-04-12 14:24] VITALS: BP 142/82
--- NOTE | 2019-04-12 16:34 | Discharge Summary ---
Providers - Providers Date of Admission: 04/08/19 19:03 Date of discharge: 04/12/19 Attending physician: MONI CERDA 04/08/19 15:30 Consult to Physician [CONS] Urgent Comment: Consulting Provider: YANG BLAND Physician Instructions: Reason For Exam: cp, aflutter with rvr 04/08/19 19:03 Consult to Dietitian/Nutrition [CONS] Routine Physician Instructions: Reason For Exam: Reason for Consult: Diet education 04/08/19 19:05 Consult to Physician [CONS] Routine Comment: Consulting Provider: JEVON COURTNEY Physician Instructions: Reason For Exam: atrial flutter/rvr Hospitalization Reason for admission: New onset atrial flutter with rapid rate Condition: Stable Pertinent studies: Chest x-ray: Negative Procedures: JESSICA guided cardioversion Hospital course: Final discharge diagnosis: New onset atrial flutter with rapid rate Elevated troponin, probably demand ischemia due to above Obstructive sleep apnea on CPAP at night Essential Hypertension Obesity with BMI of 38.5 Hospital course: Patient was placed on IV Cardizem drip and admitted to the ICU. The Cardizem was later changed to amiodarone and beta antonio was added per cardiology recommendation. In addition, he was started on anticoagulation. For the elevated troponin, it trended down with serial monitoring. Subsequently, the pt underwent JESSICA guided cardioversion without any complications. Postprocedure, he was monitored without any adverse events and his rhythm remained sinus. He was then deemed stable for discharge with clinic follow-up after clearance by the cardiology Disposition: DC-01 TO HOME OR SELFCARE Time spent for discharge: 40 minutes Core Measure Documentation - Palliative Care Palliative Care/ Comfort Measures: Not Applicable - Core Measures Any of the following diagnoses?: none Exam - Constitutional Vitals: Temp Pulse Resp BP Pulse Ox 98.2 F 82 22 142/82 95 04/12/19 12:00 04/12/19 14:00 04/12/19 14:00 04/12/19 14:00 04/12/19 13:00 General appearance: Present: no acute distress, obese - EENT Eyes: Present: PERRL, EOM intact ENT: hearing intact, clear oral mucosa - Neck Neck: Present: supple, normal ROM - Respiratory Respiratory effort: normal Respiratory: bilateral: CTA - Cardiovascular Rhythm: regular Heart Sounds: Present: S1 & S2. Absent: rub, click - Extremities Extremities: pulses symmetrical, No edema Peripheral Pulses: within normal limits - Abdominal General gastrointestinal: Present: soft, non-tender, non-distended, normal bowel sounds Male genitourinary: Present: deferred - Integumentary Integumentary: Present: clear, warm, dry - Musculoskeletal Musculoskeletal: gait normal, strength equal bilaterally - Psychiatric Psychiatric: appropriate mood/affect, intact judgment & insight - Neurologic Neurologic: CNII-XII intact, moves all extremities Plan Follow up with: ROMERO NIEVES [Other] - 7 Days Forms: Work/School Excuse Out Patient, Work/School Release Form Prescriptions: Aspirin EC 81 mg PO QDAY #30 tablet Amiodarone [Cordarone 200 MG TAB] 200 mg PO QDAY #30 tablet Metoprolol [Lopressor TAB] 50 mg PO BID #60 tablet Pantoprazole [Protonix] 40 mg PO QDAY #30 tablet Rivaroxaban [Xarelto] 20 mg PO QDAY #30 tablet
--- NOTE | 2019-04-12 18:19 | Progress Note ---
Assessment and Plan Patient came back from cardioversion. Patient alert, awake. Denies chest pain, shortness of breath or cough.Patient is on 2 litres O2. O2 saturation 97%. Patients heart rate 80. B/P 138/94. - Patient Problems (1) Chest pain Current Visit: Yes Status: Acute Qualifiers: Ischemic chest pain type: unspecified angina pectoris type Plan to address problem: Management as per cardiology. (2) Diastolic CHF Current Visit: Yes Status: Acute Qualifiers: Heart failure chronicity: acute Qualified Code(s): I50.31 - Acute diastolic (congestive) heart failure Plan to address problem: Management as per cardiology. (3) NSTEMI (non-ST elevated myocardial infarction) Current Visit: Yes Status: Acute Plan to address problem: Management as per cardiology. (4) Atrial flutter with rapid ventricular response Current Visit: Yes Status: Acute Plan to address problem: Patient undergone cardioversion. Patient is on Heparin. Management as per cardiology. (5) HTN (hypertension) Current Visit: Yes Status: Chronic Qualifiers: Hypertension type: essential hypertension Qualified Code(s): I10 - Essential (primary) hypertension Plan to address problem: Management as per primary care. (6) Obesity hypoventilation syndrome Current Visit: Yes Status: Acute Plan to address problem: Patient is on BIPAP. Recommend to loose weight. (7) Sleep apnea Current Visit: Yes Status: Chronic Qualifiers: Sleep apnea type: unspecified type Qualified Code(s): G47.30 - Sleep apnea, unspecified Plan to address problem: Patient is on BIPAP. Recommend to loose weight. Subjective Date of service: 04/12/19 Interval history: Patient came back from cardioversion. Patient alert, awake. Denies chest pain, shortness of breath or cough.Patient is on 2 litres O2. O2 saturation 97%. Patients heart rate 80. B/P 138/94. Objective Vital Signs - 12hr 04/12/19 04/12/19 04/12/19 07:00 08:00 08:55 Temperature 97.9 F Pulse Rate 62 65 Pulse Rate [ 71 From Monitor] Respiratory Rate Blood Pressure 129/76 141/89 O2 Sat by Pulse 100 94 97 Oximetry 04/12/19 04/12/19 04/12/19 09:00 09:23 10:00 Temperature Pulse Rate 70 77 65 Pulse Rate [ From Monitor] Respiratory 28 H Rate Blood Pressure 129/76 127/69 138/84 O2 Sat by Pulse 94 96 Oximetry 04/12/19 04/12/19 04/12/19 11:00 12:00 13:00 Temperature 98.2 F Pulse Rate 59 L 60 68 Pulse Rate [ 66 From Monitor] Respiratory 18 12 11 L Rate Blood Pressure 139/85 140/90 148/83 O2 Sat by Pulse 98 95 Oximetry 04/12/19 04/12/19 14:00 16:00 Temperature 98.3 F Pulse Rate 82 Pulse Rate [ From Monitor] Respiratory 22 Rate Blood Pressure 142/82 O2 Sat by Pulse Oximetry Constitutional: no acute distress, alert, other (middle aged morbidly obese AAM, normocephalic and atraumatic with mildly increased resp effort at rest) Eyes: non-icteric ENT: oropharynx moist, other (mallampati 4) Neck: supple, no lymphadenopathy, no JVD, other (large neck circumference) Effort: mildly labored Ascultation: Bilateral: diminished breath sounds Percussion: Bilateral: not dull Cardiovascular: irregular rhythm, other (No R/M) Gastrointestinal: normoactive bowel sounds, soft, non-tender, non-distended, other (No HSM) Integumentary: normal Extremities: no cyanosis, no edema, pulses normal, no ischemia or petechiae Neurologic: normal mental status, non-focal exam, pupils equal and round, motor strength normal and Psychiatric: mood appropriate, affect normal CBC and BMP: 04/12/19 05:06 04/10/19 04:25 ABG, PT/INR, D-dimer: PT/INR, D-dimer PT 13.1 Sec. (12.2-14.9) 04/08/19 16:09 INR 1.02 (0.87-1.13) 04/08/19 16:09 Abnormal lab findings: Abnormal Labs 04/08/19 04/08/19 04/08/19 16:09 16:09 18:01 RBC Seg Neutrophils % 71.0 H Heparin Anti-Xa Level Creatinine Glucose 133 H Troponin T 0.099 H Albumin 3.8 L 04/08/19 04/09/19 04/09/19 20:42 03:23 10:26 RBC Seg Neutrophils % Heparin Anti-Xa Level 0.21 L Creatinine 0.7 L Glucose 114 H Troponin T 0.094 H Albumin 3.7 L 04/10/19 04/10/19 04/11/19 04:25 04:25 16:54 RBC 5.16 H Seg Neutrophils % Heparin Anti-Xa Level 0.29 L Creatinine Glucose 112 H Troponin T Albumin Allied health notes reviewed: nursing
[2019-04-13] MEDS ORDERED: XARELTO PO SCH (10:00)
[2019-04-13] MEDS ORDERED: NORVASC PO SCH (10:00)
== END 2019-04-12 18:58 | disposition home or self-care (01) | DRG 280 ==
LOC: ED 14:59 → CC1 19:03 → IMCU 04-10 18:29
PROVIDERS: ADMIT Internal Medicine; ATTEND Internal Medicine
PROC: 5A09357 Assistance with Respiratory Ventilation, Less than 24 Consecutive Hours, Continuous Positive Airway Pressure (ICD-10-PCS; 2019-04-09)
PROC: 5A2204Z Restoration of Cardiac Rhythm, Single (ICD-10-PCS; principal; 2019-04-10)
PROC: 5A09357 Assistance with Respiratory Ventilation, Less than 24 Consecutive Hours, Continuous Positive Airway Pressure (ICD-10-PCS; 2019-04-10)
PROC: 5A09357 Assistance with Respiratory Ventilation, Less than 24 Consecutive Hours, Continuous Positive Airway Pressure (ICD-10-PCS; 2019-04-11)
DX: I21.4 Non-ST elevation (NSTEMI) myocardial infarction (principal); I50.31 Acute diastolic (congestive) heart failure; E66.2 Morbid (severe) obesity with alveolar hypoventilation; I11.0 Hypertensive heart disease with heart failure; I48.4 Atypical atrial flutter; I47.1 Supraventricular tachycardia; Z68.38 Body mass index [BMI] 38.0-38.9, adult; Z83.3 Family history of diabetes mellitus; Z82.49 Family history of ischemic heart disease and other diseases of the circulatory system; Z87.891 Personal history of nicotine dependence; Z71.3 Dietary counseling and surveillance
CPT/HCPCS: 36415; 71045; 80048; 80053; 80307; 82962; 83735; 83880; 84439; 84443; 84484; 85014; 85018; 85025; 85049; 85520; 85610; 85730; 93005; 93010; 93312; 93320; 93325; 94640; 94760; 96374; 96375; G0378; J0153; J0282; J1644; J2250; J2704; J7040; J7060

== ENCOUNTER 2019-06-27 17:17 | Emergency (ER) | payer OTHER ==
--- NOTE | 2019-06-27 20:12 | XRay Report ---
RIGHT HAND 3 VIEWS INDICATION / CLINICAL INFORMATION: pain and swelling. COMPARISON: None available. FINDINGS: No fracture, dislocation or soft tissue swelling is seen within the right hand. Joint spaces are well preserved. Signer Name: Michele Salcedo MD Signed: 06/27/2019 8:07 PM Workstation Name: [email or web address] [id number]
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
[2019-06-27 22:54] VITALS: BP 160/42
== END 2019-06-27 22:52 | disposition home or self-care (01) ==
LOC: ED 17:17
DX: S16.1XXA Strain of muscle, fascia and tendon at neck level, initial encounter (principal); S39.012A Strain of muscle, fascia and tendon of lower back, initial encounter; I10 Essential (primary) hypertension; Z79.899 Other long term (current) drug therapy; S60.221A Contusion of right hand, initial encounter; V49.9XXA Car occupant (driver) (passenger) injured in unspecified traffic accident, initial encounter; Y93.89 Activity, other specified; Y92.410 Unspecified street and highway as the place of occurrence of the external cause; Y99.8 Other external cause status